=== PATIENT | female | born 1940 | race Hispanic/Latino ===

== ENCOUNTER 2019-07-29 21:27 | Observation (INO) | payer OTHER, SELFPAY ==
[~2019-07-29] VITALS: Ht 165.1 cm; Wt 65.5 kg
[2019-07-29 21:55] LABS: APPEARANCE,URINE Clear (CLEAR); BILIRUBIN,URINE Negative (NEGATIVE); COLOR,URINE Yellow (YELLOW); GLUCOSE, URINE (UA) Negative (NEGATIVE); KETONES,URINE Negative (NEGATIVE); LEUKOCYTE ESTERASE ,URINE Trace (NEGATIVE); NITRATE,URINE Negative (NEGATIVE); OCCULT BLOOD,URINE Negative (NEGATIVE); PH,URINE 8.5 (5.0-8.0); PROTEIN,URINE Negative (NEGATIVE); UROBILINOGEN,URINE 0.2 mg/dL (0.2-1.0)
[2019-07-29 22:02] LABS: BASOPHILS % (AUTO) 0.4 % (0.0-5.0); EOSINOPHILS % (AUTO) 0.6 % (0.0-8.0); HEMATOCRIT 41.9 % (36-48); LYMPHOCYTES % (AUTO) 14.5 % (21.0-51.0); MEAN CORPUSCULAR HEMOGLOBIN 29.1 pg (27.0-33.0); MEAN CORPUSCULAR HGB CONC 34.6 g/dL (32.0-36.0); MONOCYTES % (AUTO) 7.9 % (3.0-13.0); NEUTROPHILS % (AUTO) 76.2 % (40.0-77.0); PLATELET COUNT (AUTO) 291 K/uL (130-400); RED BLOOD CELL COUNT(AUTO) 4.99 MIL/uL (4.00-5.50); RED CELL DISTRIBUTION WIDTH 13.2 % (11.0-15.5); WHITE BLOOD COUNT (AUTO) 8.3 K/uL (4.8-10.8)
[2019-07-29 22:03] LABS: BACTERIA,URINE Few /HPF (None Seen); RBC,URINE None Seen /HPF (0-1); WBC,URINE 0-1 /HPF (0-1)
[2019-07-29 22:04] LABS: SQUAMOUS EPITHELIAL CELL,UR 0-2 /HPF (0-2)
[2019-07-29 22:12] LABS: POTASSIUM 3.8 mmol/L (3.5-5.1)
[2019-07-29 22:18] LABS: ALBUMIN 4.4 g/dL (3.5-5.0); BILIRUBIN,TOTAL 0.5 mg/dL (0.2-1.0)
[2019-07-29 23:09] LABS: INR 0.92 (0.85-1.15); PARTIAL THROMBOPLASTIN TIME 26.3 SEC (26.3-35.5)
[2019-07-29] MEDS ORDERED: ASPIRIN 325 MG TABLET ONE (23:24)
[2019-07-30] MEDS ORDERED: LACTULOSE 20 GM/30 ML UDCUP PO PRN (01:00)
[2019-07-30] MEDS ORDERED: NITROGLYCERIN 0.4 MG SL TAB SL PRN (01:00)
[2019-07-30] MEDS ORDERED: ONDANSETRON HCL 4 MG/2 ML VIAL IV PRN (01:00)
[2019-07-30] MEDS ORDERED: HYDRALAZINE HCL 20 MG/ML VIAL IV PRN (01:00)
[2019-07-30] MEDS ORDERED: ACETAMINOPHEN 325 MG TAB PO PRN ×2 (01:00)
[2019-07-30 04:24] LABS: HEMOGLOBIN A1C 6.5 % (4.0-6.0)
[2019-07-30 04:34] LABS: AMPHET/METH SCREEN,URINE NEGATIVE (NEGATIVE); BARBITURATE SCREEN, URINE NEGATIVE (NEGATIVE); BENZODIAZEPINES SCREEN,URINE NEGATIVE (NEGATIVE); CANNABINOID SCREEN,URINE NEGATIVE (NEGATIVE); COCAINE SCREEN,URINE NEGATIVE (NEGATIVE); OPIATE SCREEN,URINE POSITIVE (NEGATIVE); PHENCYCLIDINE SCREEN,URINE NEGATIVE (NEGATIVE)
[2019-07-30 05:23] VITALS: BP 150/76
[2019-07-30 06:53] LABS: BASOPHILS % (AUTO) 0.6 % (0.0-5.0); HEMATOCRIT 39.2 % (36-48); LYMPHOCYTES % (AUTO) 17.3 % (21.0-51.0); MEAN CORPUSCULAR HEMOGLOBIN 29.4 pg (27.0-33.0); MEAN CORPUSCULAR HGB CONC 34.4 g/dL (32.0-36.0); MEAN CORPUSCULAR VOLUME 85.4 fL (79-99); MONOCYTES % (AUTO) 10.2 % (3.0-13.0); NEUTROPHILS % (AUTO) 70.4 % (40.0-77.0); PLATELET COUNT (AUTO) 285 K/uL (130-400); RED BLOOD CELL COUNT(AUTO) 4.59 MIL/uL (4.00-5.50); RED CELL DISTRIBUTION WIDTH 13.4 % (11.0-15.5); WHITE BLOOD COUNT (AUTO) 6.2 K/uL (4.8-10.8)
[2019-07-30] MEDS ORDERED: HYDR-4153 PO (07:20)
[2019-07-30] MEDS ORDERED: AMLO5TAB9 PO (07:20)
[2019-07-30 07:23] LABS: CREATININE 0.7 mg/dL (0.5-1.5); MAGNESIUM 2.3 mg/dL (1.80-2.40); PHOSPHORUS 3.3 mg/dL (2.5-4.9); POTASSIUM 3.6 mmol/L (3.5-5.1); THYROID STIMULATING HORMONE 2.98 uIU/mL (0.36-3.74)
[2019-07-30 08:18] VITALS: BP 145/61
[2019-07-30] MEDS ORDERED: ASPIRIN 81 MG EC TAB PO SCH (09:00)
[2019-07-30] MEDS ORDERED: FAMOTIDINE 20MG TAB 20 MG TAB PO SCH (09:00)
[2019-07-30] MEDS ORDERED: ENOXAPARIN SODIUM 30 MG/0.3 ML SQ SCH (09:00)
[2019-07-30] MEDS ORDERED: METOPROLOL TARTRATE 25 MG TAB PO SCH (09:00)
[2019-07-30 11:57] VITALS: BP 137/68
[2019-07-30] MEDS ORDERED: SODIUM CHLORIDE 0.9% 100 ML IV SCH (13:30)
--- NOTE | 2019-07-30 14:26 | NUR ---
CM NOTE/IA MEET WITH PATIENT IN ROOM. PER PATIENT, LIVES WITH DAUGHTER, INDEPENDENT WITH ADLS, NO DME IN USE, NO HOME HEALTH OR PROVIDER SERVICES, AND FEELS SAFE TO RETURN HOME. SELF PACKET AND MEDICATION PACKET GIVEN TO PATIENT, VERBALIZED UNDERSTANDING OF PACKETS. Addendum: 07/31/19 at 1428 by JOSE ALFREDO MCGEE RN CM Amended: Links added.
[2019-07-30] MEDS ORDERED: AEC81 PO (16:27)
[2019-07-30] MEDS ORDERED: METO25 PO (16:27)
[2019-07-30] MEDS ORDERED: Nitroglycerin 0.4MG Sl Tab SL (16:27)
--- NOTE | 2019-07-30 18:18 | NUR ---
DISCHARGE DISCHARGE INSTRUCTIONS GIVEN, PATIENT VERBALIZED UNDERSTANDING. PRESCRIPTIONS GIVEN TO PATIENT. IV DISCONTINUED. TELEPAK DISCONTINUED.
== END 2019-07-30 18:39 | disposition home or self-care (01) ==
LOC: EDH 21:27 → EDHIP 21:28 → 4BH 07-30 05:20
PROVIDERS: ADMIT Internal Medicine; ATTEND Internal Medicine
DX: R53.1 Weakness (principal); R40.0 Somnolence; I48.91 Unspecified atrial fibrillation; I10 Essential (primary) hypertension; H54.61 Unqualified visual loss, right eye, normal vision left eye; Z90.49 Acquired absence of other specified parts of digestive tract; Z79.82 Long term (current) use of aspirin; Z79.899 Other long term (current) drug therapy; Z88.5 Allergy status to narcotic agent; Z88.6 Allergy status to analgesic agent; Z88.0 Allergy status to penicillin
CPT/HCPCS: 36415 ×2; 80048; 80053; 80061; 80305; 81001; 82550; 83036; 83735; 84100; 84443; 84484 ×3; 85025 ×2; 85610; 85730; 93005 ×4; 96372; 97039; 97161; 99284; G0378 ×18; G8978; G8979; G8980; G8981; G8982; G8983; J1650

== ENCOUNTER 2019-10-01 15:32 | Inpatient (IN) | payer MEDICAID, OTHER ==
[~2019-10-01] VITALS: Ht 157.5 cm; Wt 66.6 kg
[~2019-10-01 15:32] MED LIST: AEC81 PO; AMLO5TAB9 PO; HYDR-4153 PO; METO25 PO; Nitroglycerin 0.4MG Sl Tab SL
[2019-10-01 16:35] LABS: BASOPHILS % (AUTO) 0.6 % (0.0-5.0); EOSINOPHILS % (AUTO) 0.8 % (0.0-8.0); HEMATOCRIT 41.3 % (36-48); LYMPHOCYTES % (AUTO) 20.9 % (21.0-51.0); MEAN CORPUSCULAR HEMOGLOBIN 29.7 pg (27.0-33.0); MEAN CORPUSCULAR HGB CONC 35.1 g/dL (32.0-36.0); MEAN CORPUSCULAR VOLUME 84.5 fL (79-99); MONOCYTES % (AUTO) 9.6 % (3.0-13.0); NEUTROPHILS % (AUTO) 67.7 % (40.0-77.0); PLATELET COUNT (AUTO) 288 K/uL (130-400); RED BLOOD CELL COUNT(AUTO) 4.89 MIL/uL (4.00-5.50); RED CELL DISTRIBUTION WIDTH 12.6 % (11.0-15.5); WHITE BLOOD COUNT (AUTO) 5.2 K/uL (4.8-10.8)
[2019-10-01 16:38] LABS: CREATININE 0.7 mg/dL (0.5-1.5); POTASSIUM 3.1 mmol/L (3.5-5.1)
[2019-10-01 16:41] LABS: INR 0.92 (0.85-1.15); PARTIAL THROMBOPLASTIN TIME 26.7 SEC (26.3-35.5)
[2019-10-01 16:43] LABS: BILIRUBIN,TOTAL 0.5 mg/dL (0.2-1.0)
[2019-10-01] MEDS ORDERED: NITROGLYCERIN 0.4 MG SL TAB SL PRN (19:15)
[2019-10-01] MEDS: NITROGLYCERIN 1GM/1 INCH PACKET TD SCH (19:15)
[2019-10-01] MEDS ORDERED: LACTULOSE 20 GM/30 ML UDCUP PO PRN (19:15)
[2019-10-01] MEDS ORDERED: ONDANSETRON HCL 4 MG/2 ML VIAL IV PRN (19:15)
[2019-10-01] MEDS ORDERED: ENOXAPARIN SODIUM 40 MG/0.4 ML SYRINGE SQ SCH (19:58)
[2019-10-01] MEDS ORDERED: METOPROLOL TARTRATE 25 MG TAB PO SCH (21:00)
[2019-10-01] MEDS ORDERED: METOPROLOL TARTRATE 25 MG TAB ONE (21:11)
[2019-10-01] MEDS ORDERED: ACETAMINOPHEN 325 MG TAB ONE (21:11)
[2019-10-01] MEDS ORDERED: ENOXAPARIN SODIUM 40 MG/0.4 ML SYRINGE SQ ONE (21:11)
[2019-10-01] MEDS ORDERED: NITROGLYCERIN 1GM/1 INCH PACKET TD ONE (21:11)
[2019-10-02] MEDS ORDERED: NITROGLYCERIN 1GM/1 INCH PACKET TD ONE (04:16)
[2019-10-02] MEDS ORDERED: ACETAMINOPHEN 325 MG TAB ONE (04:19)
[2019-10-02 05:02] LABS: HEMATOCRIT 36.9 % (36-48); MEAN CORPUSCULAR HEMOGLOBIN 29.7 pg (27.0-33.0); MEAN CORPUSCULAR HGB CONC 35.2 g/dL (32.0-36.0); MEAN CORPUSCULAR VOLUME 84.4 fL (79-99); PLATELET COUNT (AUTO) 274 K/uL (130-400); RED BLOOD CELL COUNT(AUTO) 4.37 MIL/uL (4.00-5.50); RED CELL DISTRIBUTION WIDTH 12.6 % (11.0-15.5); WHITE BLOOD COUNT (AUTO) 4.6 K/uL (4.8-10.8)
[2019-10-02 05:12] LABS: BASOPHILS % (MANUAL) 2 % (0-2); LYMPHOCYTES % (MANUAL) 26 % (22-44); MAN.DIFF COMMENT-IMPRESSION MANUAL DIFFERENTIAL; MONOCYTES % (MANUAL) 8 % (2-9); PLATELET MORPHOLOGY COMMENT ADEQUATE; REACTIVE LYMPHOCYTES 6 % (0-0); SEGMENTED NEUTROPHILS % 58 % (40-70)
[2019-10-02 05:30] LABS: CREATININE 0.7 mg/dL (0.5-1.5); MAGNESIUM 2.2 mg/dL (1.80-2.40); POTASSIUM 3.4 mmol/L (3.5-5.1)
[2019-10-02] MEDS ORDERED: ACETAMINOPHEN ELIXIR 650 MG/20.3 ML UDCUP ONE (07:59)
[2019-10-02] MEDS ORDERED: ENOXAPARIN SODIUM 40 MG/0.4 ML SYRINGE SQ ONE (08:00)
[2019-10-02] MEDS ORDERED: ASPIRIN 325 MG TABLET ONE (08:00)
[2019-10-02] MEDS ORDERED: ENOXAPARIN SODIUM 40 MG/0.4 ML SYRINGE SQ SCH (09:00)
[2019-10-02] MEDS ORDERED: ASPIRIN 325 MG TABLET PO SCH (09:00)
[2019-10-02 10:35] VITALS: BP 128/58
--- NOTE | 2019-10-02 10:35 | NUR ---
TSF FROM ER RECEIVED REPORT FORM HERBIE CALLAHAN FROM ER, PT IN STRETCHER, VS STABLE , CARDIAC CONSULT (EDUIN) PT ON TELE
[2019-10-02] MEDS: NITROGLYCERIN 1GM/1 INCH PACKET TD SCH ×2 (12:29→21:12)
[2019-10-02] MEDS ORDERED: HYD (13:26)
[2019-10-02] MEDS ORDERED: ACET-66 PO (13:26)
[2019-10-02 16:58] VITALS: BP 153/71
[2019-10-02] MEDS ORDERED: ALPRAZOLAM 0.25 MG TABLET ONE (17:38)
[2019-10-02] MEDS ORDERED: ALPRAZOLAM 0.25 MG TABLET PO ONE (19:00)
[2019-10-02 19:20] VITALS: BP 142/71
[2019-10-02] MEDS: ENOXAPARIN SODIUM 60 MG/0.6 ML SQ SCH (21:13)
[2019-10-03] VITALS (7 sets, daily range): BP systolic 122–177; BP diastolic 54–80
[2019-10-03] MEDS: NITROGLYCERIN 1GM/1 INCH PACKET TD SCH ×3 (04:25→20:35)
[2019-10-03 07:55] LABS: BASOPHILS % (AUTO) 0.5 % (0.0-5.0); EOSINOPHILS % (AUTO) 0.7 % (0.0-8.0); LYMPHOCYTES % (AUTO) 22.1 % (21.0-51.0); MEAN CORPUSCULAR HEMOGLOBIN 29.6 pg (27.0-33.0); MEAN CORPUSCULAR HGB CONC 34.6 g/dL (32.0-36.0); MEAN CORPUSCULAR VOLUME 85.5 fL (79-99); MONOCYTES % (AUTO) 10.7 % (3.0-13.0); NEUTROPHILS % (AUTO) 65.8 % (40.0-77.0); PLATELET COUNT (AUTO) 273 K/uL (130-400); RED BLOOD CELL COUNT(AUTO) 4.56 MIL/uL (4.00-5.50); RED CELL DISTRIBUTION WIDTH 12.8 % (11.0-15.5); WHITE BLOOD COUNT (AUTO) 4.3 K/uL (4.8-10.8)
[2019-10-03 08:13] LABS: CREATININE 0.7 mg/dL (0.5-1.5); MAGNESIUM 2.2 mg/dL (1.80-2.40); PHOSPHORUS 3.3 mg/dL (2.5-4.9); POTASSIUM 3.7 mmol/L (3.5-5.1)
[2019-10-03] MEDS: ASPIRIN 81MG TAB.CHEW PO SCH (09:21)
[2019-10-03] MEDS: ENOXAPARIN SODIUM 60 MG/0.6 ML SQ SCH ×2 (09:21→20:48)
[2019-10-03] MEDS: ACETAMINOPHEN 325 MG TAB PO PRN ×2 (09:25→22:32)
--- NOTE | 2019-10-03 16:27 | NUR ---
PHILIPPE NOTE/IA UNABLE TO MEET WITH PATIENT, NEXT OF KIN CALLED, KAILA OSORIO. PER SON, PATIENT LIVES WITH SPOUSE AND DAUGHTER, AUGUSTIN OSORIO. ALSO, IS INDEPENDENT WITH ADLS, NO USE OF DME OR COMMUNITY SERVICES, HAS PRIMARY PHYSICIAN IN [place], AND FEELS SAFE FOR PATIENT TO RETURN HOME ONCE DISCHARGED FROM HOSPITAL. Addendum: 10/03/19 at 1628 by JOSE ALFREDO MCGEE RN CM Amended: Links added.
[2019-10-03] MEDS ORDERED: TRAMADOL HCL 50 MG TABLET PO ONE (16:30)
--- NOTE | 2019-10-03 21:08 | NUR ---
NOTE 2014 RECEIVED PHONE CALL FROM PATIENT'S PROVIDER AND SPOKE TO ME ABOUT SOME COMPLAINTS THAT PATIENT HAD. TOD HER THAT I WOULD SPEAK TO PATIENT. 2044 SPOKE WITH PATIENT ABOUT THE CALL RECEIVED FROM PROVIDER AND SHE SAID SHE DID ASKED HER TO MAKE IT AND AUTHORIZES HER TO RECEIVE INFORMATION IN HER CASE. DISCUSSED WITH HER WHAT HER NEEDS WERE AND WHAT IS UPSETTING HER. SHE SPOKE ABOUT BAD EXPERIENCES SHE HAD WITH STAFF. STATES THAT AT THIS TIME SHE JUST WOULD LIKE HER BLOOD PRESSURE ADDRESSED BECAUSE SHE DOES NOT FEEL WELL AND IT IS HIGH. ALSO IN THE CONVERSATION NOTICED THAT SHE IS ALSO FRUSTRATED WITH COMMUNICATION ISSUES SHE ONLY SPEAKS CITIZEN OF [place] AND NOT ALL STAFF SPEAK CITIZEN OF [place]. REASSURED HER FOR TONIGHT I WILL BE TAKING CARE OF HER AND WILL HELP WITH THOSE COMMUNICATION PROBLEMS. SPOKE WITH HER ABOUT HER PLAN: AWAITING THE RESULT OF COVID TEST FOR THE [employer] TO PROCEED WITH SCHEDULING A STRESS TEST (EXPLAINED WHAT IT IS). THEN AFTER THAT THE DOCTOR CAN DECIDE HOW TO PROCEED BASED ON RESULTS. SHE ACKNOWLEDGED UNDERSTANDING AND HAD ME SPEAK WITH HER DAUGHTER SYLVIE IN [place] VIA HER PHONE AND TELL HER ABOUT THIS UPDATES. TOLD HER THAT I WOULD CONTACT THE DOCTOR TO GET ORDERS TO HELP CONTROL BLOOD PRESSURE AT THIS TIME HER MEDICATIONS DO NOT LIST MEDICATION TO GIVE HER. SPENT ABOUT 30 MINUTES WITH PATIENT/DAUGHTER. 2057 CONTACTED ANSWERING SERVICE AND THEY CONTACTED DR CADENA OVER PHONE AND PASSED CALL ON TO ME (ONCALL FOR HOSPITALIST) GAVE BRIEF REPORT ON PATIENT AND BP OF 187/89 HR 71. DENIES ANY CHEST PAIN AT THIS TIME. NO PRN CURRENTLY FOR HER. IS RECEIVING NITRO PASTE. ORDERS RECEIVED FOR HYDRALAZINE 10 MG IV Q6HRS PRN. ENTERED ORDER IN COMPUTER. 2107 UPDATED PATIENT ON NEW ORDER AND THAT WILL BE GIVING IT TO HER ONCE VERIFIED BY PHARMACY. PATIENT ACKNOWLEDGED UNDERSTANDING. PATIENT SEEMS MORE CALM AND NOT ANXIOUS AND UPSET BEFORE.
[2019-10-03] MEDS: HYDRALAZINE HCL 20 MG/ML VIAL IV PRN (22:31)
[2019-10-03] MEDS: ZOLPIDEM TARTRATE 5 MG TAB PO PRN (23:40)
[2019-10-04] MEDS: NITROGLYCERIN 1GM/1 INCH PACKET TD SCH ×3 (03:33→20:26)
[2019-10-04 03:50] VITALS: BP 109/62
[2019-10-04 07:27] LABS: HEMATOCRIT 38.1 % (36-48); MEAN CORPUSCULAR HGB CONC 35.2 g/dL (32.0-36.0); MEAN CORPUSCULAR VOLUME 85.2 fL (79-99); PLATELET COUNT (AUTO) 288 K/uL (130-400); RED BLOOD CELL COUNT(AUTO) 4.47 MIL/uL (4.00-5.50); RED CELL DISTRIBUTION WIDTH 12.8 % (11.0-15.5); WHITE BLOOD COUNT (AUTO) 6.2 K/uL (4.8-10.8)
[2019-10-04 07:40] LABS: CREATININE 0.9 mg/dL (0.5-1.5); MAGNESIUM 2.1 mg/dL (1.80-2.40); PHOSPHORUS 3.5 mg/dL (2.5-4.9); POTASSIUM 3.8 mmol/L (3.5-5.1)
[2019-10-04 08:00] VITALS: BP 124/73
[2019-10-04 08:20] LABS: LYMPHOCYTES % (MANUAL) 4 % (22-44); MAN.DIFF COMMENT-IMPRESSION MANUAL DIFFERENTIAL; MONOCYTES % (MANUAL) 2 % (2-9); PLATELET MORPHOLOGY COMMENT ADEQUATE; REACTIVE LYMPHOCYTES 3 % (0-0); SEGMENTED NEUTROPHILS % 91 % (40-70)
[2019-10-04] MEDS: ENOXAPARIN SODIUM 60 MG/0.6 ML SQ SCH ×2 (10:00→20:27)
[2019-10-04] MEDS: ASPIRIN 81MG TAB.CHEW PO SCH (11:29)
[2019-10-04 12:00] VITALS: BP 128/83
[2019-10-04 16:00] VITALS: BP 148/81
--- NOTE | 2019-10-04 17:40 | NUR ---
TRANSFER REPORT RECEIVED FROM [facility]. PATIENT WITH CHEST PAIN, AND RATE CONTROLLED ARTERIAL FIBRILLATION. PATIENT TRANSFERRED VIA WHEELCHAIR BY NATE ROMERO. TELE IN PLACE RUNNING [employer] AT 78. PATIENT STABLE AT THIS TIME.
[2019-10-04 19:30] VITALS: BP 142/71
[2019-10-04 20:27] VITALS: BP 146/66
[2019-10-04] MEDS ORDERED: MAG HYDROX/AL HYDROX/SIMETH ES 30 ML SUSP UDCUP PO PRN (21:00)
[2019-10-04] MEDS: MAG HYDROX/AL HYDROX/SIMETH ES 30 ML SUSP UDCUP PO PRN (21:25)
[2019-10-04] MEDS: ACETAMINOPHEN 325 MG TAB PO PRN (21:27)
[2019-10-04] MEDS: ZOLPIDEM TARTRATE 5 MG TAB PO PRN (22:51)
[2019-10-05] VITALS (7 sets, daily range): BP systolic 109–197; BP diastolic 54–96
[2019-10-05] MEDS: NITROGLYCERIN 1GM/1 INCH PACKET TD SCH ×3 (02:59→20:52)
[2019-10-05] MEDS: ASPIRIN 81MG TAB.CHEW PO SCH (10:32)
[2019-10-05] MEDS: ENOXAPARIN SODIUM 60 MG/0.6 ML SQ SCH ×2 (10:33→20:55)
[2019-10-05] MEDS: MAG HYDROX/AL HYDROX/SIMETH ES 30 ML SUSP UDCUP PO PRN ×2 (11:36→22:04)
[2019-10-05] MEDS: HYDRALAZINE HCL 20 MG/ML VIAL IV PRN (15:09)
[2019-10-05] MEDS: ACETAMINOPHEN 325 MG TAB PO PRN (15:29)
--- NOTE | 2019-10-05 22:18 | NUR ---
NOTE CONTACTED HOSPITALIST ANSWERING SERVICE TO PAGE DR. NEWTON. UPON CALL BACK NOTIFIED HER THAT PATIENT IS REQUESTING MEDICATION FOR ANXIETY. INFORMED HER THAT PATIENT GOT A DOSE ON OCTOBER 01. SHE SAID SHE WILL PLACE AN ORDER FOR HER.
[2019-10-05] MEDS ORDERED: ALPRAZOLAM 0.25 MG TABLET PO ONE (22:30)
[2019-10-06] VITALS: BP 124/62
[2019-10-06] MEDS: NITROGLYCERIN 1GM/1 INCH PACKET TD SCH ×3 (03:49→20:05)
[2019-10-06 03:58] VITALS: BP 141/75
[2019-10-06 05:30] LABS: LYMPHOCYTES % (AUTO) 29.9 % (21.0-51.0); MEAN CORPUSCULAR HEMOGLOBIN 29.6 pg (27.0-33.0); MEAN CORPUSCULAR HGB CONC 34.7 g/dL (32.0-36.0); MEAN CORPUSCULAR VOLUME 85.2 fL (79-99); MONOCYTES % (AUTO) 11.2 % (3.0-13.0); NEUTROPHILS % (AUTO) 56.4 % (40.0-77.0); PLATELET COUNT (AUTO) 279 K/uL (130-400); RED BLOOD CELL COUNT(AUTO) 4.46 MIL/uL (4.00-5.50); RED CELL DISTRIBUTION WIDTH 12.8 % (11.0-15.5)
[2019-10-06 05:53] LABS: ALBUMIN 3.4 g/dL (3.5-5.0); BILIRUBIN,TOTAL 0.4 mg/dL (0.2-1.0); CREATININE 0.7 mg/dL (0.5-1.5); POTASSIUM 3.5 mmol/L (3.5-5.1); TOTAL PROTEIN, SERUM 6.8 g/dL (6.0-8.3)
[2019-10-06] MEDS ORDERED: REGADENOSON 0.4 MG/5 ML PF SYG IVP SCH (07:30)
[2019-10-06] MEDS: HYDRALAZINE HCL 20 MG/ML VIAL IV PRN (07:30)
[2019-10-06 08:00] VITALS: BP 164/93
[2019-10-06 12:00] VITALS: BP 127/75
[2019-10-06] MEDS: LISINOPRIL 10 MG TABLET PO SCH (12:00)
[2019-10-06] MEDS: ENOXAPARIN SODIUM 60 MG/0.6 ML SQ SCH ×2 (12:00→20:05)
[2019-10-06] MEDS: ASPIRIN 81MG TAB.CHEW PO SCH (12:00)
[2019-10-06 16:00] VITALS: BP 108/61
[2019-10-06] MEDS: ACETAMINOPHEN 325 MG TAB PO PRN (20:04)
[2019-10-06 20:32] VITALS: BP 124/73
[2019-10-06] MEDS: MAG HYDROX/AL HYDROX/SIMETH ES 30 ML SUSP UDCUP PO PRN (21:52)
--- NOTE | 2019-10-06 21:52 | NUR ---
MAALOX Medicated for c/o stomach upset.
--- NOTE | 2019-10-06 22:52 | NUR ---
MED EFFECT Pt sleeping quietly in bed,voiced no complaints.
[2019-10-07] VITALS: BP 131/68
[2019-10-07] MEDS: NITROGLYCERIN 1GM/1 INCH PACKET TD SCH (03:15)
[2019-10-07 03:36] VITALS: BP 105/53
[2019-10-07 04:36] LABS: BASOPHILS % (AUTO) 0.7 % (0.0-5.0); EOSINOPHILS % (AUTO) 1.5 % (0.0-8.0); HEMATOCRIT 37.1 % (36-48); LYMPHOCYTES % (AUTO) 33.3 % (21.0-51.0); MEAN CORPUSCULAR HEMOGLOBIN 29.7 pg (27.0-33.0); MEAN CORPUSCULAR HGB CONC 34.2 g/dL (32.0-36.0); MEAN CORPUSCULAR VOLUME 86.7 fL (79-99); MONOCYTES % (AUTO) 12.3 % (3.0-13.0); PLATELET COUNT (AUTO) 269 K/uL (130-400); RED BLOOD CELL COUNT(AUTO) 4.28 MIL/uL (4.00-5.50); RED CELL DISTRIBUTION WIDTH 12.9 % (11.0-15.5); WHITE BLOOD COUNT (AUTO) 4.1 K/uL (4.8-10.8)
[2019-10-07 05:05] LABS: ALBUMIN 3.3 g/dL (3.5-5.0); BILIRUBIN,TOTAL 0.4 mg/dL (0.2-1.0); CREATININE 0.8 mg/dL (0.5-1.5); POTASSIUM 3.7 mmol/L (3.5-5.1); TOTAL PROTEIN, SERUM 6.5 g/dL (6.0-8.3)
[2019-10-07 07:55] VITALS: BP 100/52
[2019-10-07] MEDS: ASPIRIN 81MG TAB.CHEW PO SCH (10:08)
[2019-10-07] MEDS: LISINOPRIL 10 MG TABLET PO SCH (10:08)
[2019-10-07 11:24] VITALS: BP 132/66
--- NOTE | 2019-10-07 14:00 | NUR ---
PATIENT ANXIOUS pt states is rx expensive ? states she may need to get it from [place] Marisol from case management brought a coupon for pt se will receive one months medication for 10.00 she was very grateful
== END 2019-10-07 16:00 | disposition home or self-care (01) | DRG 313 ==
LOC: EDH 15:32 → EDHIP 15:33 → 3AH 10-02 10:34 → 3CH 10-04 16:56
PROVIDERS: ADMIT Internal Medicine; ATTEND Internal Medicine
DX: R07.89 Other chest pain (principal); D68.59 Other primary thrombophilia; I50.32 Chronic diastolic (congestive) heart failure; I48.19 Other persistent atrial fibrillation; I49.5 Sick sinus syndrome; E11.9 Type 2 diabetes mellitus without complications; I11.0 Hypertensive heart disease with heart failure; E78.5 Hyperlipidemia, unspecified; M17.10 Unilateral primary osteoarthritis, unspecified knee; Z20.828 Contact with and (suspected) exposure to other viral communicable diseases; Z79.01 Long term (current) use of anticoagulants; Z90.49 Acquired absence of other specified parts of digestive tract; Z88.0 Allergy status to penicillin; Z88.5 Allergy status to narcotic agent; Z88.8 Allergy status to other drugs, medicaments and biological substances; Z83.3 Family history of diabetes mellitus; Z82.49 Family history of ischemic heart disease and other diseases of the circulatory system
CPT/HCPCS: 36415; 71045; 78452; 80048; 80053; 82550; 83735; 84100; 84484; 85025; 85610; 85730; 87426; 93005; 93017; 93306; 93356; 96374; A9500; G0378; J0360; J1650; J2785; U0003

== ENCOUNTER 2019-11-07 20:17 | Inpatient (IN) | payer MEDICAID, OTHER ==
[~2019-11-07] VITALS: Ht 152.4 cm; Wt 69.9 kg
[~2019-11-07 20:17] MED LIST changes: +ACET-66 PO
[2019-11-07 20:36] LABS: BASOPHILS % (AUTO) 0.3 % (0.0-5.0); EOSINOPHILS % (AUTO) 0.7 % (0.0-8.0); HEMATOCRIT 36.9 % (36-48); LYMPHOCYTES % (AUTO) 16.1 % (21.0-51.0); MEAN CORPUSCULAR HEMOGLOBIN 29.7 pg (27.0-33.0); MONOCYTES % (AUTO) 8.2 % (3.0-13.0); NEUTROPHILS % (AUTO) 74.4 % (40.0-77.0); PLATELET COUNT (AUTO) 229 K/uL (130-400); RED BLOOD CELL COUNT(AUTO) 4.34 MIL/uL (4.00-5.50); RED CELL DISTRIBUTION WIDTH 12.7 % (11.0-15.5)
[2019-11-07 20:47] LABS: CREATININE 0.8 mg/dL (0.5-1.5); POTASSIUM 3.7 mmol/L (3.5-5.1)
[2019-11-07 20:48] LABS: INR 0.91 (0.85-1.15); PARTIAL THROMBOPLASTIN TIME 26.8 SEC (26.3-35.5); PROTHROMBIN TIME 9.9 SEC (9.6-11.6)
[2019-11-07 20:51] LABS: ALBUMIN 3.7 g/dL (3.5-5.0); BILIRUBIN,TOTAL 0.2 mg/dL (0.2-1.0); TOTAL PROTEIN, SERUM 7.5 g/dL (6.0-8.3)
[2019-11-07] MEDS ORDERED: FAMOTIDINE/PF 20 MG/2 ML VIAL IV ONE (21:10)
[2019-11-07] MEDS ORDERED: HYOSCYAMINE SULFATE 0.125 MG TAB.SUBL SL ONE (21:10)
[2019-11-07] MEDS ORDERED: NITROGLYCERIN 1GM/1 INCH PACKET TD ONE (21:10)
[2019-11-07] MEDS ORDERED: ASPIRIN 325 MG TABLET ONE (22:44)
[2019-11-08] MEDS ORDERED: ACETAMINOPHEN 325 MG TAB PO PRN (00:30)
[2019-11-08] MEDS ORDERED: ONDANSETRON HCL 4 MG/2 ML VIAL IV PRN (00:30)
[2019-11-08] MEDS ORDERED: NITROGLYCERIN 0.4 MG SL TAB SL PRN (00:30)
[2019-11-08 03:20] VITALS: BP 145/87
--- NOTE | 2019-11-08 03:20 | NUR ---
admit note admit to [id number] via stretcher from er. patient awake, alert, ox3, no sob, no c/o pain at this time, teach patient plan of care and expected outcome, patient verbalizes understanding via teach back
[2019-11-08] MEDS ORDERED: APIX5TAB PO (03:31)
[2019-11-08] MEDS ORDERED: VALS80TA2 PO (03:31)
[2019-11-08] MEDS ORDERED: ALPR0.255 PO (03:31)
[2019-11-08 06:58] LABS: CREATININE 0.7 mg/dL (0.5-1.5); MAGNESIUM 2.2 mg/dL (1.80-2.40); THYROID STIMULATING HORMONE 3.24 uIU/mL (0.36-3.74)
[2019-11-08 07:45] VITALS: BP 146/70
[2019-11-08] MEDS: APIXABAN 5 MG TABLET PO SCH ×2 (08:30→19:59)
[2019-11-08] MEDS: FAMOTIDINE 20MG TAB 20 MG TAB PO SCH ×2 (08:30→19:59)
[2019-11-08 11:07] VITALS: BP 142/64
[2019-11-08] MEDS: ACETAMINOPHEN 325 MG TAB PO PRN ×2 (13:02→20:02)
[2019-11-08] MEDS: METOPROLOL SUCCINATE 50 MG TAB.SR.24H PO SCH (18:12)
--- NOTE | 2019-11-08 19:22 | NUR ---
INITIAL: Met w pt this afternoon to discuss dcp. Pt mentions that she lives w her spouse and a 23yr old child w down syndrome. Per pt prior to admission she was independent w ambulation and ADLs. she has a cane avail if needed. Pt mentions that she feels safe and comfortable to [place]. Discussed $4 medication discount program avail @ [facility] and [facility]. PHILIPPE to continue to follow and wait for Md recommendations. Addendum: 11/09/19 at 1927 by NATALY MONTANEZ CM Amended: Links added.
--- NOTE | 2019-11-08 20:00 | NUR ---
INTERROGATION PACEMAKER INTERROGATION DONE AT THE BEDSIDE,PER TECH NO EVENTS REGISTERED, TEACH PATIENT PLAN OF CARE AND EXPECTED OUTCOME , PATIENT VERBALIZES UNDERSTANDING VIA TEACH BACK
[2019-11-08 23:55] VITALS: BP 133/76
[2019-11-09 03:54] VITALS: BP 157/83
[2019-11-09] MEDS: ACETAMINOPHEN 325 MG TAB PO PRN (05:47)
[2019-11-09 06:01] LABS: BASOPHILS % (AUTO) 0.6 % (0.0-5.0); EOSINOPHILS % (AUTO) 1.1 % (0.0-8.0); HEMATOCRIT 41.6 % (36-48); MEAN CORPUSCULAR HEMOGLOBIN 29.9 pg (27.0-33.0); MEAN CORPUSCULAR HGB CONC 34.6 g/dL (32.0-36.0); MEAN CORPUSCULAR VOLUME 86.5 fL (79-99); MONOCYTES % (AUTO) 9.6 % (3.0-13.0); NEUTROPHILS % (AUTO) 66.5 % (40.0-77.0); PLATELET COUNT (AUTO) 251 K/uL (130-400); RED BLOOD CELL COUNT(AUTO) 4.81 MIL/uL (4.00-5.50); RED CELL DISTRIBUTION WIDTH 12.6 % (11.0-15.5); WHITE BLOOD COUNT (AUTO) 5.3 K/uL (4.8-10.8)
[2019-11-09 06:30] LABS: ALBUMIN 3.7 g/dL (3.5-5.0); BILIRUBIN,TOTAL 0.4 mg/dL (0.2-1.0); CREATININE 0.7 mg/dL (0.5-1.5); TOTAL PROTEIN, SERUM 7.5 g/dL (6.0-8.3)
[2019-11-09] MEDS: METOPROLOL SUCCINATE 50 MG TAB.SR.24H PO SCH (08:18)
[2019-11-09] MEDS: APIXABAN 5 MG TABLET PO SCH (08:18)
[2019-11-09 08:25] VITALS: BP 144/76
[2019-11-09] MEDS ORDERED: PANTOPRAZOLE SODIUM 40 MG TABLET.DR PO SCH (09:00)
[2019-11-09] MEDS ORDERED: METO-408 PO (09:54)
[2019-11-09 11:29] VITALS: BP 147/73
== END 2019-11-09 15:20 | disposition home or self-care (01) | DRG 310 ==
LOC: EDH 20:17 → EDHIP 20:18 → OBSVTOIN 20:18 → 3AH 11-08 02:01
PROVIDERS: ADMIT Internal Medicine; ATTEND Internal Medicine
PROC: 4B02XSZ Measurement of Cardiac Pacemaker, External Approach (ICD-10-PCS; principal; 2019-11-07)
PROC: B246ZZZ Ultrasonography of Right and Left Heart (ICD-10-PCS; 2019-11-07)
DX: I48.19 Other persistent atrial fibrillation (principal); M19.90 Unspecified osteoarthritis, unspecified site; I44.30 Unspecified atrioventricular block; I10 Essential (primary) hypertension; Z90.49 Acquired absence of other specified parts of digestive tract; Z88.0 Allergy status to penicillin; Z88.5 Allergy status to narcotic agent; Z95.0 Presence of cardiac pacemaker; Z79.01 Long term (current) use of anticoagulants
CPT/HCPCS: 36415; 71045; 80048; 80053; 80061; 82550; 83690; 83735; 83880; 84443; 84484; 85025; 85610; 85730; 93005; 93306; 93356; G0378; J3490

== ENCOUNTER 2020-05-10 18:33 | Inpatient (IN) | payer MEDICAID, OTHER ==
[~2020-05-10] VITALS: Ht 154.9 cm; Wt 69.9 kg
[~2020-05-10 18:33] MED LIST changes: -ACET-66 PO; -AEC81 PO; +ALPR0.255 PO; -AMLO5TAB9 PO; +APIX5TAB PO; -HYDR-4153 PO; +METO-408 PO; -METO25 PO; -Nitroglycerin 0.4MG Sl Tab SL; +VALS80TA2 PO
[2020-05-10 20:15] LABS: BASOPHILS % (AUTO) 0.1 % (0.0-5.0); HEMATOCRIT 36.8 % (36-48); LYMPHOCYTES % (AUTO) 4.6 % (21.0-51.0); MEAN CORPUSCULAR HEMOGLOBIN 28.4 pg (27.0-33.0); MEAN CORPUSCULAR VOLUME 83.6 fL (79-99); MONOCYTES % (AUTO) 1.2 % (3.0-13.0); NEUTROPHILS % (AUTO) 93.8 % (40.0-77.0); PLATELET COUNT (AUTO) 183 K/uL (130-400); RED CELL DISTRIBUTION WIDTH 13.9 % (11.0-15.5); WHITE BLOOD COUNT (AUTO) 10.1 K/uL (4.8-10.8)
[2020-05-10 20:27] LABS: APPEARANCE,URINE Clear (CLEAR); BILIRUBIN,URINE Negative (NEGATIVE); COLOR,URINE Yellow (YELLOW); GLUCOSE, URINE (UA) >=1000 mg/dL (NEGATIVE); KETONES,URINE Negative (NEGATIVE); LEUKOCYTE ESTERASE ,URINE Negative (NEGATIVE); NITRATE,URINE Negative (NEGATIVE); OCCULT BLOOD,URINE Negative (NEGATIVE); PROTEIN,URINE Negative (NEGATIVE)
[2020-05-10 20:33] LABS: WBC,URINE 0-1 /HPF (0-1)
[2020-05-10 20:34] LABS: BACTERIA,URINE Rare /HPF (None Seen)
[2020-05-10 20:35] LABS: SQUAMOUS EPITHELIAL CELL,UR Rare /HPF (0-2)
[2020-05-10 21:06] LABS: CRP QUANTITATIVE 36.8 mg/L (0.00-9.0)
[2020-05-10 21:22] LABS: CREATININE 0.9 mg/dL (0.5-1.5); POTASSIUM 3.7 mmol/L (3.5-5.1)
[2020-05-10 21:27] LABS: ALBUMIN 3.6 g/dL (3.5-5.0); BILIRUBIN,TOTAL 0.5 mg/dL (0.2-1.0); TOTAL PROTEIN, SERUM 7.6 g/dL (6.0-8.3)
[2020-05-10 21:28] LABS: ERYTHROCYTE SEDIMENTATION RATE 6 MM/HR (0-30)
[2020-05-10] MEDS ORDERED: ENOXAPARIN SODIUM 80 MG/0.8 ML SQ ONE (21:56)
[2020-05-10] MEDS ORDERED: ASPIRIN 325 MG TABLET ONE (21:56)
[2020-05-10] MEDS ORDERED: CLOPIDOGREL BISULFATE 75 MG TAB ONE (21:56)
[2020-05-10] MEDS ORDERED: HYDROCODONE/ACETAMINOPHEN 5/325 MG TAB ONE (21:59)
[2020-05-11] VITALS (7 sets, daily range): BP systolic 132–191; BP diastolic 56–75
[2020-05-11] MEDS ORDERED: ONDANSETRON HCL 4 MG/2 ML VIAL IV PRN (01:45)
[2020-05-11] MEDS ORDERED: ACETAMINOPHEN 325 MG TAB PO PRN (01:45)
[2020-05-11] MEDS ORDERED: HYDROCODONE/ACETAMINOPHEN 5/325 MG TAB ONE (02:55)
[2020-05-11] MEDS ORDERED: METO-408 PO (04:44)
[2020-05-11] MEDS ORDERED: AMLO5TAB5 PO (04:44)
[2020-05-11 05:46] LABS: BASOPHILS % (AUTO) 0.1 % (0.0-5.0); HEMATOCRIT 37.2 % (36-48); LYMPHOCYTES % (AUTO) 4.6 % (21.0-51.0); MEAN CORPUSCULAR HEMOGLOBIN 28.6 pg (27.0-33.0); MEAN CORPUSCULAR HGB CONC 35.2 g/dL (32.0-36.0); MEAN CORPUSCULAR VOLUME 81.2 fL (79-99); MONOCYTES % (AUTO) 0.9 % (3.0-13.0); PLATELET COUNT (AUTO) 249 K/uL (130-400); RED BLOOD CELL COUNT(AUTO) 4.58 MIL/uL (4.00-5.50); RED CELL DISTRIBUTION WIDTH 13.7 % (11.0-15.5); WHITE BLOOD COUNT (AUTO) 10.1 K/uL (4.8-10.8)
[2020-05-11 05:59] LABS: CREATININE 0.7 mg/dL (0.5-1.5); POTASSIUM 3.3 mmol/L (3.5-5.1)
[2020-05-11] MEDS: HYDRALAZINE HCL 20 MG/ML VIAL IV PRN (08:47)
[2020-05-11] MEDS ORDERED: METOPROLOL TARTRATE 25 MG TAB PO SCH (09:00)
[2020-05-11] MEDS ORDERED: ASPIRIN 81 MG EC TAB ONE (12:47)
[2020-05-11] MEDS: ACETAMINOPHEN 325 MG TAB PO PRN (12:54)
[2020-05-11] MEDS: CLOPIDOGREL BISULFATE 75 MG TAB PO SCH (12:55)
[2020-05-11] MEDS: FAMOTIDINE/PF 20 MG/2 ML VIAL IV SCH ×2 (12:56→21:00)
[2020-05-11] MEDS: ASPIRIN 325 MG TABLET PO SCH (12:57)
[2020-05-11] MEDS ORDERED: ENOXAPARIN SODIUM 80 MG/0.8 ML SQ SCH (16:15)
[2020-05-11] MEDS ORDERED: SODIUM CHLORIDE 0.9% 500ML 500 ML IV SCH (16:15)
[2020-05-11] MEDS: METOPROLOL SUCCINATE 50 MG TAB.SR.24H PO SCH (21:00)
[2020-05-12] VITALS (40 sets, daily range): BP systolic 80–192; BP diastolic 46–106
[2020-05-12 04:14] LABS: BASOPHILS % (AUTO) 0.3 % (0.0-5.0); EOSINOPHILS % (AUTO) 0.2 % (0.0-8.0); HEMATOCRIT 35.8 % (36-48); LYMPHOCYTES % (AUTO) 11.2 % (21.0-51.0); MEAN CORPUSCULAR HGB CONC 34.1 g/dL (32.0-36.0); MEAN CORPUSCULAR VOLUME 82.3 fL (79-99); MONOCYTES % (AUTO) 7.8 % (3.0-13.0); NEUTROPHILS % (AUTO) 80.2 % (40.0-77.0); PLATELET COUNT (AUTO) 237 K/uL (130-400); RED BLOOD CELL COUNT(AUTO) 4.35 MIL/uL (4.00-5.50); RED CELL DISTRIBUTION WIDTH 13.9 % (11.0-15.5); WHITE BLOOD COUNT (AUTO) 8.9 K/uL (4.8-10.8)
[2020-05-12 04:45] LABS: ALBUMIN 3.1 g/dL (3.5-5.0); BILIRUBIN,TOTAL 0.5 mg/dL (0.2-1.0); CREATININE 0.7 mg/dL (0.5-1.5); POTASSIUM 3.2 mmol/L (3.5-5.1); TOTAL PROTEIN, SERUM 6.5 g/dL (6.0-8.3)
[2020-05-12 07:48] LABS: INR 0.98 (0.85-1.15); PROTHROMBIN TIME 10.7 SEC (9.6-11.6)
[2020-05-12 07:49] LABS: PARTIAL THROMBOPLASTIN TIME 27.8 SEC (26.3-35.5)
[2020-05-12] MEDS: HYDRALAZINE HCL 20 MG/ML VIAL IV PRN (08:23)
[2020-05-12] MEDS: FAMOTIDINE/PF 20 MG/2 ML VIAL IV SCH ×2 (08:23→20:26)
[2020-05-12] MEDS ORDERED: APIXABAN 5 MG TABLET PO SCH (09:00)
[2020-05-12] MEDS: CLOPIDOGREL BISULFATE 75 MG TAB PO SCH (11:21)
[2020-05-12] MEDS: ASPIRIN 325 MG TABLET PO SCH (11:22)
[2020-05-12] MEDS ORDERED: POTASSIUM CHLORIDE 10% ELIXIR 20 MEQ/15 ML UDCUP PO PRN (11:30)
[2020-05-12] MEDS ORDERED: LIDOCAINE HCL-MPF 1% 2ML VIAL IJ PRN (11:30)
[2020-05-12] MEDS ORDERED: POTASSIUM CHLORIDE 20MEQ/100ML 100 ML IV PRN (11:30)
[2020-05-12] MEDS ORDERED: POTASSIUM CHLORIDE 20 MEQ ERTAB PO PRN (11:30)
[2020-05-12] MEDS ORDERED: POTASSIUM CHLORIDE 20 MEQ ERTAB PO ONE (11:59)
[2020-05-12] MEDS: METOPROLOL SUCCINATE 50 MG TAB.SR.24H PO SCH ×2 (12:05→20:26)
[2020-05-12] MEDS: AMLODIPINE BESYLATE 5 MG TAB PO SCH (12:05)
[2020-05-12] MEDS ORDERED: IODIXANOL 320 MG/ML 100 ML VIAL ONE (12:45)
[2020-05-12] MEDS ORDERED: NITROGLYCERIN 2 MG/VIAL VIAL IV ONE (12:45)
[2020-05-12] MEDS ORDERED: LIDOCAINE HCL 2% 20ML ONE (12:46)
[2020-05-12] MEDS ORDERED: FENTANYL CITRATE PF 50 MCG/1 ML 2ML VIAL ONE (12:46)
[2020-05-12] MEDS ORDERED: MIDAZOLAM HCL 1 MG/ML 2ML VIAL ONE (12:46)
[2020-05-12] MEDS ORDERED: HEPARIN SODIUM 1000UNIT/ML 10ML VIAL ONE (12:46)
[2020-05-12] MEDS ORDERED: ALTEPLASE IVCATH ONE (14:00)
[2020-05-12] MEDS ORDERED: SODIUM CHLORIDE 0.9% IVCATH ONE (14:00)
[2020-05-12] MEDS ORDERED: HEPARIN SODIUM IV SCH (14:45)
[2020-05-12] MEDS ORDERED: SODIUM CHLORIDE 0.9% IV SCH (14:45)
[2020-05-12] MEDS ORDERED: GLUCAGON 1MG KIT 1 MG ML IM PRN (14:45)
[2020-05-12] MEDS ORDERED: DEXTROSE 50%-WATER 50 ML DISP.SYRIN IV PRN (14:45)
[2020-05-12] MEDS ORDERED: METOPROLOL TARTRATE 1 MG/ML 5ML VIAL IV PRN (14:45)
[2020-05-12] MEDS: PHARMACY COMMUNICATION MISC SCH ×3 (14:45→22:45)
[2020-05-12] MEDS ORDERED: HYDRALAZINE HCL 20 MG/ML VIAL IV PRN (14:45)
[2020-05-12] MEDS ORDERED: FENTANYL CITRATE PF 50 MCG/1 ML 2ML VIAL IVP PRN (15:00)
[2020-05-12] MEDS ORDERED: MIDAZOLAM HCL 1 MG/ML 2ML VIAL IVP PRN (15:00)
[2020-05-12] MEDS: ACETAMINOPHEN-CODEINE 300/30MG TAB PO PRN ×2 (18:42→22:05)
[2020-05-12] MEDS ORDERED: COMPOUND IV REFRIGERATED 1 EACH IVSOLN MISC PRN (19:45)
[2020-05-13] VITALS (36 sets, daily range): BP systolic 109–197; BP diastolic 44–97
[2020-05-13] MEDS: ACETAMINOPHEN-CODEINE 300/30MG TAB PO PRN ×2 (02:21→20:18)
[2020-05-13] MEDS: PHARMACY COMMUNICATION MISC SCH ×2 (02:34→06:45)
[2020-05-13 03:31] LABS: BASOPHILS % (AUTO) 0.5 % (0.0-5.0); EOSINOPHILS % (AUTO) 0.3 % (0.0-8.0); HEMATOCRIT 43.1 % (36-48); LYMPHOCYTES % (AUTO) 11.6 % (21.0-51.0); MEAN CORPUSCULAR HEMOGLOBIN 28.3 pg (27.0-33.0); MEAN CORPUSCULAR HGB CONC 33.6 g/dL (32.0-36.0); MONOCYTES % (AUTO) 10.4 % (3.0-13.0); NEUTROPHILS % (AUTO) 76.8 % (40.0-77.0); PLATELET COUNT (AUTO) 249 K/uL (130-400); RED BLOOD CELL COUNT(AUTO) 5.13 MIL/uL (4.00-5.50); RED CELL DISTRIBUTION WIDTH 14.3 % (11.0-15.5); WHITE BLOOD COUNT (AUTO) 7.9 K/uL (4.8-10.8)
[2020-05-13 03:43] LABS: ALBUMIN 3.6 g/dL (3.5-5.0); BILIRUBIN,TOTAL 0.5 mg/dL (0.2-1.0); CREATININE 0.7 mg/dL (0.5-1.5); POTASSIUM 3.4 mmol/L (3.5-5.1); TOTAL PROTEIN, SERUM 7.4 g/dL (6.0-8.3)
[2020-05-13] MEDS ORDERED: ALTEPLASE IVCATH NR (07:00)
[2020-05-13] MEDS ORDERED: SODIUM CHLORIDE 0.9% IVCATH NR (07:00)
[2020-05-13] MEDS ORDERED: SODIUM CHLORIDE 0.9% IVCATH ONE (07:00)
[2020-05-13] MEDS ORDERED: ALTEPLASE IVCATH ONE (07:00)
[2020-05-13] MEDS ORDERED: IODIXANOL 320 MG/ML 100 ML VIAL ONE (07:09)
[2020-05-13] MEDS ORDERED: NITROGLYCERIN 2 MG/VIAL VIAL IV ONE (07:09)
[2020-05-13] MEDS ORDERED: FENTANYL CITRATE PF 50 MCG/1 ML 2ML VIAL ONE (07:10)
[2020-05-13] MEDS ORDERED: MIDAZOLAM HCL 1 MG/ML 2ML VIAL ONE (07:10)
[2020-05-13] MEDS ORDERED: LIDOCAINE HCL 2% 20ML ONE (07:10)
[2020-05-13] MEDS ORDERED: HEPARIN SODIUM 1000UNIT/ML 10ML VIAL ONE (07:11)
[2020-05-13] MEDS ORDERED: SODIUM CHLORIDE 0.9% 1000ML 1,000 ML IV SCH (08:30)
[2020-05-13] MEDS: METOPROLOL SUCCINATE 50 MG TAB.SR.24H PO SCH ×2 (10:37→20:18)
[2020-05-13] MEDS: AMLODIPINE BESYLATE 5 MG TAB PO SCH (10:37)
[2020-05-13] MEDS: CLOPIDOGREL BISULFATE 75 MG TAB PO SCH (10:38)
[2020-05-13] MEDS: ACETAMINOPHEN 325 MG TAB PO PRN (10:38)
[2020-05-13] MEDS ORDERED: ASPIRIN 81MG TAB.CHEW PO SCH (10:54)
[2020-05-13] MEDS: FAMOTIDINE 20MG TAB 20 MG TAB PO SCH (20:18)
[2020-05-14 00:23] VITALS: BP 124/61
[2020-05-14 04:51] VITALS: BP 170/101
[2020-05-14] MEDS ORDERED: ALPRAZOLAM 0.25 MG TABLET PO PRN (05:00)
[2020-05-14 05:43] LABS: BASOPHILS % (AUTO) 0.4 % (0.0-5.0); EOSINOPHILS % (AUTO) 0.3 % (0.0-8.0); HEMATOCRIT 40.6 % (36-48); LYMPHOCYTES % (AUTO) 14.6 % (21.0-51.0); MEAN CORPUSCULAR HEMOGLOBIN 28.2 pg (27.0-33.0); MONOCYTES % (AUTO) 9.8 % (3.0-13.0); NEUTROPHILS % (AUTO) 74.6 % (40.0-77.0); PLATELET COUNT (AUTO) 227 K/uL (130-400); RED BLOOD CELL COUNT(AUTO) 4.89 MIL/uL (4.00-5.50); RED CELL DISTRIBUTION WIDTH 14.2 % (11.0-15.5); WHITE BLOOD COUNT (AUTO) 7.4 K/uL (4.8-10.8)
[2020-05-14 06:03] LABS: ALBUMIN 3.2 g/dL (3.5-5.0); BILIRUBIN,TOTAL 0.7 mg/dL (0.2-1.0); CREATININE 0.7 mg/dL (0.5-1.5); POTASSIUM 3.4 mmol/L (3.5-5.1); TOTAL PROTEIN, SERUM 7.2 g/dL (6.0-8.3)
[2020-05-14 08:00] VITALS: BP 119/59
[2020-05-14] MEDS: AMLODIPINE BESYLATE 5 MG TAB PO SCH (08:26)
[2020-05-14] MEDS: FAMOTIDINE 20MG TAB 20 MG TAB PO SCH (08:26)
[2020-05-14] MEDS: METOPROLOL SUCCINATE 50 MG TAB.SR.24H PO SCH (08:28)
[2020-05-14] MEDS ORDERED: APIXABAN 5 MG TABLET PO SCH (09:00)
[2020-05-14] MEDS ORDERED: ASPIRIN 81MG TAB.CHEW PO SCH (09:00)
[2020-05-14] MEDS ORDERED: ASPI-1005 PO (10:46)
[2020-05-14 11:40] VITALS: BP 120/57
== END 2020-05-14 12:40 | disposition home or self-care (01) | DRG 300 ==
LOC: EDH 18:33 → EDHIP 18:34 → 4AH 05-11 03:50 → 2CH 05-12 15:36 → 4DH 05-13 09:19
PROVIDERS: ADMIT Internal Medicine; ATTEND Internal Medicine
PROC: 3E05317 Introduction of Other Thrombolytic into Peripheral Artery, Percutaneous Approach (ICD-10-PCS; 2020-05-12)
PROC: B41F1ZZ Fluoroscopy of Right Lower Extremity Arteries using Low Osmolar Contrast (ICD-10-PCS; principal; 2020-05-13)
DX: I70.229 Atherosclerosis of native arteries of extremities with rest pain, unspecified extremity (principal); I48.19 Other persistent atrial fibrillation; D68.59 Other primary thrombophilia; E87.1 Hypo-osmolality and hyponatremia; I10 Essential (primary) hypertension; E87.6 Hypokalemia; Z79.01 Long term (current) use of anticoagulants; Z91.14 Patient's other noncompliance with medication regimen; Z95.0 Presence of cardiac pacemaker; Z82.49 Family history of ischemic heart disease and other diseases of the circulatory system; Z82.3 Family history of stroke; Z90.49 Acquired absence of other specified parts of digestive tract; Z88.8 Allergy status to other drugs, medicaments and biological substances
CPT/HCPCS: 36247; 36415; 37211; 37214; 73090; 75630; 75710; 80048; 80053; 81001; 82550; 83605; 84145; 84484; 85025; 85610; 85651; 85730; 86140; 87040; 93005; 93306; 93356; 93925; 93970; 99156; 99157; C1757; C1760; C1769; C1893; C1894; G0378; J0360; J1644; J1650; J2250; J2997; J3010; J3490; J7040; Q9967

== ENCOUNTER 2020-06-05 21:46 | Emergency (ER) | payer MEDICAID, OTHER ==
[~2020-06-05 21:46] MED LIST changes: -ALPR0.255 PO; +AMLO5TAB5 PO; +ASPI-1005 PO; -VALS80TA2 PO
[2020-06-05 22:10] LABS: BASOPHILS % (AUTO) 0.5 % (0.0-5.0); HEMATOCRIT 35.1 % (36-48); LYMPHOCYTES % (AUTO) 18.5 % (21.0-51.0); MEAN CORPUSCULAR HGB CONC 34.8 g/dL (32.0-36.0); MEAN CORPUSCULAR VOLUME 83.4 fL (79-99); NEUTROPHILS % (AUTO) 69.4 % (40.0-77.0); PLATELET COUNT (AUTO) 237 K/uL (130-400); RED BLOOD CELL COUNT(AUTO) 4.21 MIL/uL (4.00-5.50); RED CELL DISTRIBUTION WIDTH 15.3 % (11.0-15.5); WHITE BLOOD COUNT (AUTO) 6.3 K/uL (4.8-10.8)
[2020-06-05 22:22] LABS: CREATININE 0.6 mg/dL (0.5-1.5); POTASSIUM 4.4 mmol/L (3.5-5.1)
[2020-06-05 22:26] LABS: PROTHROMBIN TIME 10.9 SEC (9.6-11.6)
[2020-06-05 22:27] LABS: PARTIAL THROMBOPLASTIN TIME 26.4 SEC (26.3-35.5)
[2020-06-05 22:29] LABS: ALBUMIN 3.5 g/dL (3.5-5.0); BILIRUBIN,TOTAL 0.5 mg/dL (0.2-1.0); TOTAL PROTEIN, SERUM 7.3 g/dL (6.0-8.3)
[2020-06-05 22:32] LABS: APPEARANCE,URINE Clear (CLEAR); BILIRUBIN,URINE Negative (NEGATIVE); COLOR,URINE Yellow (YELLOW); GLUCOSE, URINE (UA) Negative (NEGATIVE); KETONES,URINE Negative (NEGATIVE); LEUKOCYTE ESTERASE ,URINE Negative (NEGATIVE); NITRATE,URINE Negative (NEGATIVE); OCCULT BLOOD,URINE Negative (NEGATIVE); PH,URINE 7.5 (5.0-8.0); PROTEIN,URINE Negative (NEGATIVE); UROBILINOGEN,URINE 0.2 mg/dL (0.2-1.0)
[2020-06-05] MEDS ORDERED: ACETAMINOPHEN 500 MG TABLET ONE (23:56)
== END 2020-06-06 00:12 | disposition home or self-care (01) ==
LOC: EDH 21:46
DX: R10.30 Lower abdominal pain, unspecified (principal); I88.8 Other nonspecific lymphadenitis; M19.90 Unspecified osteoarthritis, unspecified site; I10 Essential (primary) hypertension; Z90.49 Acquired absence of other specified parts of digestive tract; Z88.5 Allergy status to narcotic agent; Z88.0 Allergy status to penicillin
CPT/HCPCS: 36415; 80053; 81003; 85025; 85610; 85730; 93971

== ENCOUNTER 2020-06-28 17:04 | Emergency (ER) | payer OTHER ==
[2020-06-28 19:00] LABS: APPEARANCE,URINE Cloudy (CLEAR); BILIRUBIN,URINE Negative (NEGATIVE); COLOR,URINE Yellow (YELLOW); GLUCOSE, URINE (UA) Negative (NEGATIVE); KETONES,URINE Negative (NEGATIVE); LEUKOCYTE ESTERASE ,URINE Large (NEGATIVE); NITRATE,URINE Negative (NEGATIVE); OCCULT BLOOD,URINE Large (NEGATIVE); PROTEIN,URINE POS 1+ mg/dL (NEGATIVE)
[2020-06-28 19:20] LABS: BACTERIA,URINE Few /HPF (None Seen); MUCUS,URINE Rare LPF (None Seen); SQUAMOUS EPITHELIAL CELL,UR Rare /HPF (0-2); WBC,URINE 26-50 /HPF (0-1)
[2020-06-28] MEDS ORDERED: CEPHALEXIN 500 MG CAPSULE ONE (19:38)
[2020-06-28] MEDS ORDERED: ACETAMINOPHEN 325 MG TAB ONE (19:38)
[2020-06-28] MEDS ORDERED: PHENAZOPYRIDINE HCL 200 MG TABLET ONE (19:39)
[2020-06-28] MEDS ORDERED: DICYCLOMINE HCL 20 MG TAB ONE (19:39)
== END 2020-06-28 19:56 | disposition home or self-care (01) ==
LOC: EDH 17:04
DX: S63.502A Unspecified sprain of left wrist, initial encounter (principal); S93.402A Sprain of unspecified ligament of left ankle, initial encounter; N39.0 Urinary tract infection, site not specified; W18.39XA Other fall on same level, initial encounter; Y93.89 Activity, other specified; Y92.89 Other specified places as the place of occurrence of the external cause; Y99.8 Other external cause status
CPT/HCPCS: 73110; 73610; 81001; 87077; 87088; 87186

== ENCOUNTER 2020-07-03 14:49 | Emergency (ER) | payer OTHER ==
[2020-07-03] MEDS ORDERED: DEXAMETHASONE SOD PHOSPHATE 10MG/ML 1ML VIAL ONE (15:06)
[2020-07-03] MEDS ORDERED: HYDROXYZINE HCL 25 MG TABLET ONE (15:07)
== END 2020-07-03 15:19 | disposition home or self-care (01) ==
LOC: EDH 14:49
DX: L30.9 Dermatitis, unspecified (principal); L03.114 Cellulitis of left upper limb; L03.113 Cellulitis of right upper limb; I10 Essential (primary) hypertension; M19.90 Unspecified osteoarthritis, unspecified site; Z88.0 Allergy status to penicillin; Z88.6 Allergy status to analgesic agent; Z88.8 Allergy status to other drugs, medicaments and biological substances; Z90.49 Acquired absence of other specified parts of digestive tract; Z95.0 Presence of cardiac pacemaker
CPT/HCPCS: 96372; 99283; J1100

== ENCOUNTER 2021-08-17 15:41 | Emergency (ER) | payer MEDICAID, OTHER ==
[~2021-08-17] VITALS: Ht 157.5 cm; Wt 69.9 kg
[2021-08-17 16:10] LABS: APPEARANCE,URINE Clear (CLEAR); BILIRUBIN,URINE Negative (NEGATIVE); COLOR,URINE Yellow (YELLOW); GLUCOSE, URINE (UA) Negative (NEGATIVE); KETONES,URINE Negative (NEGATIVE); LEUKOCYTE ESTERASE ,URINE Negative (NEGATIVE); NITRATE,URINE Negative (NEGATIVE); OCCULT BLOOD,URINE Negative (NEGATIVE); PH,URINE 6.5 (5.0-8.0); PROTEIN,URINE Negative (NEGATIVE); UROBILINOGEN,URINE 0.2 mg/dL (0.2-1.0)
[2021-08-17 16:41] LABS: BASOPHILS % (AUTO) 0.3 % (0.0-5.0); EOSINOPHILS % (AUTO) 0.9 % (0.0-8.0); LYMPHOCYTES % (AUTO) 15.4 % (21.0-51.0); MEAN CORPUSCULAR HEMOGLOBIN 29.8 pg (27.0-33.0); MEAN CORPUSCULAR VOLUME 87.7 fL (79-99); MONOCYTES % (AUTO) 9.2 % (3.0-13.0); PLATELET COUNT (AUTO) 199 K/uL (130-400); RED BLOOD CELL COUNT(AUTO) 3.99 MIL/uL (4.00-5.50); RED CELL DISTRIBUTION WIDTH 13.4 % (11.0-15.5); WHITE BLOOD COUNT (AUTO) 5.8 K/uL (4.8-10.8)
[2021-08-17 16:52] LABS: CREATININE 0.7 mg/dL (0.5-1.5); POTASSIUM 3.6 mmol/L (3.5-5.1)
[2021-08-17 16:53] LABS: INR 0.96 (0.85-1.15); PROTHROMBIN TIME 10.5 SEC (9.6-11.6)
[2021-08-17 17:03] LABS: ALBUMIN 3.4 g/dL (3.5-5.0); BILIRUBIN,TOTAL 0.4 mg/dL (0.2-1.0); MAGNESIUM 2.1 mg/dL (1.80-2.40); TOTAL PROTEIN, SERUM 7.1 g/dL (6.0-8.3)
[2021-08-17] MEDS ORDERED: HYDROCODONE/ACETAMINOPHEN 5/325 MG TAB PO ONE (18:00)
[2021-08-17 19:23] VITALS: BP 164/69
== END 2021-08-17 20:23 | disposition home or self-care (01) ==
LOC: EDH 15:41
DX: R07.89 Other chest pain (principal); R06.00 Dyspnea, unspecified; K21.9 Gastro-esophageal reflux disease without esophagitis; Z88.0 Allergy status to penicillin; Z88.5 Allergy status to narcotic agent; Z79.899 Other long term (current) drug therapy; Z79.82 Long term (current) use of aspirin; Z79.01 Long term (current) use of anticoagulants; Z88.7 Allergy status to serum and vaccine; Z95.810 Presence of automatic (implantable) cardiac defibrillator
CPT/HCPCS: 36415; 71045; 80053; 81003; 83735; 83874; 83880; 84484; 85025; 85610; 93005

== ENCOUNTER 2023-02-12 14:40 | Emergency (ER) | payer MEDICAID, OTHER ==
[~2023-02-12] VITALS: Ht 154.9 cm; Wt 54.4 kg
[~2023-02-12 14:40] MED LIST changes: +FURO40TA7 PO
[2023-02-12 16:06] LABS: BASOPHILS # (AUTO) 0.03 K/uL (0.00-0.20); BASOPHILS % (AUTO) 0.6 % (0.0-5.0); EOSINOPHILS # (AUTO) 0.06 K/uL (0.00-0.70); EOSINOPHILS % (AUTO) 1.2 % (0.0-8.0); HEMATOCRIT 39.5 % (36-48); IMMATURE GRANULOCYTE ABSOLUTE 0.01 K/uL (0-1); LYMPHOCYTES # (AUTO) 1.2 K/uL (1.0-4.8); LYMPHOCYTES % (AUTO) 23.9 % (21.0-51.0); MEAN CORPUSCULAR HEMOGLOBIN 29.7 pg (27.0-33.0); MEAN CORPUSCULAR HGB CONC 33.4 g/dL (32.0-36.0); MEAN CORPUSCULAR VOLUME 88.8 fL (79-99); MONOCYTES # (AUTO) 0.4 K/uL (0.1-1.0); MONOCYTES % (AUTO) 9.1 % (3.0-13.0); NEUTROPHILS # (AUTO) 3.2 K/uL (1.8-7.7); PLATELET COUNT (AUTO) 236 K/uL (130-400); RED BLOOD CELL COUNT(AUTO) 4.45 MIL/uL (4.00-5.50); RED CELL DISTRIBUTION WIDTH 13.3 % (11.0-15.5); WHITE BLOOD COUNT (AUTO) 4.9 K/uL (4.8-10.8)
[2023-02-12 16:19] LABS: APPEARANCE,URINE CLEAR (CLEAR); BILIRUBIN,URINE NEGATIVE (NEGATIVE); COLOR,URINE YELLOW (YELLOW); GLUCOSE, URINE (UA) NEGATIVE (NEGATIVE); KETONES,URINE NEGATIVE (NEGATIVE); LEUKOCYTE ESTERASE ,URINE NEGATIVE Leu/uL (NEGATIVE); NITRATE,URINE NEGATIVE (NEGATIVE); OCCULT BLOOD,URINE NEGATIVE (NEGATIVE); PROTEIN,URINE 10 mg/dL (NEGATIVE); UROBILINOGEN,URINE 0.2 mg/dL (0.2-1.0)
[2023-02-12 16:22] LABS: ADD UA MICROSCOPIC YES
[2023-02-12 16:26] LABS: CREATININE 0.8 mg/dL (0.5-1.5); POTASSIUM 3.7 mmol/L (3.5-5.1)
[2023-02-12 16:29] LABS: ALBUMIN 3.8 g/dL (3.5-5.0); BILIRUBIN,TOTAL 0.4 mg/dL (0.2-1.0); TOTAL PROTEIN, SERUM 8.2 g/dL (6.0-8.3)
[2023-02-12 16:50] LABS: BACTERIA,URINE RARE /HPF (None Seen); MUCUS,URINE RARE LPF (None Seen); SQUAMOUS EPITHELIAL CELL,UR FEW /HPF (0-2)
[2023-02-12] MEDS ORDERED: PHEN-847 PO (18:27)
[2023-02-12] MEDS ORDERED: NITR100C PO (18:27)
[2023-02-12 18:29] VITALS: BP 141/60; PULSE 62; RESP 18; O2SAT 98
[2023-02-12] MEDS ORDERED: KETOROLAC 30MG VIAL (30MG/ML) IVP ONE (19:00)
== END 2023-02-12 18:34 | disposition home or self-care (01) ==
LOC: EDH 14:40
DX: R30.0 Dysuria (principal); R10.30 Lower abdominal pain, unspecified; Z79.899 Other long term (current) drug therapy; I10 Essential (primary) hypertension; E78.00 Pure hypercholesterolemia, unspecified; Z88.0 Allergy status to penicillin; Z88.5 Allergy status to narcotic agent; Z88.7 Allergy status to serum and vaccine; Z88.8 Allergy status to other drugs, medicaments and biological substances
CPT/HCPCS: 99284; 96374; 82150; 84484; 80053; 83690; 85025; 81001; 36415; J1885

== ENCOUNTER 2023-03-21 18:18 | Emergency (ER) | payer BC, OTHER ==
[~2023-03-21] VITALS: Ht 154.9 cm; Wt 63.0 kg
[~2023-03-21 18:18] MED LIST changes: +NITR100C PO; +PHEN-847 PO
[2023-03-21] MEDS ORDERED: 0.9%NACL 1000ML 1,000 ML IV ONE (20:00)
[2023-03-21] MEDS ORDERED: ACETAMINOPHEN 325 MG TAB PO ONE (20:00)
[2023-03-21 20:19] LABS: BASOPHILS # (AUTO) 0.02 K/uL (0.00-0.20); BASOPHILS % (AUTO) 0.3 % (0.0-5.0); EOSINOPHILS # (AUTO) 0.07 K/uL (0.00-0.70); EOSINOPHILS % (AUTO) 1.1 % (0.0-8.0); HEMATOCRIT 36.5 % (36-48); IMMATURE GRANULOCYTE ABSOLUTE 0.08 K/uL (0-1); LYMPHOCYTES # (AUTO) 1.6 K/uL (1.0-4.8); LYMPHOCYTES % (AUTO) 26.8 % (21.0-51.0); MEAN CORPUSCULAR HEMOGLOBIN 29.5 pg (27.0-33.0); MEAN CORPUSCULAR HGB CONC 34.8 g/dL (32.0-36.0); MEAN CORPUSCULAR VOLUME 84.9 fL (79-99); MONOCYTES # (AUTO) 0.7 K/uL (0.1-1.0); MONOCYTES % (AUTO) 11.8 % (3.0-13.0); NEUTROPHILS # (AUTO) 3.6 K/uL (1.8-7.7); NEUTROPHILS % (AUTO) 58.7 % (40.0-77.0); PLATELET COUNT (AUTO) 265 K/uL (130-400); RED CELL DISTRIBUTION WIDTH 12.9 % (11.0-15.5); WHITE BLOOD COUNT (AUTO) 6.1 K/uL (4.8-10.8)
[2023-03-21 20:36] LABS: INFLUENZA TYPE A Negative For Type A (NEGATIVE); INFLUENZA TYPE B Negative For Type B (NEGATIVE)
[2023-03-21 20:37] LABS: CREATININE 0.6 mg/dL (0.5-1.5); POTASSIUM 3.5 mmol/L (3.5-5.1)
[2023-03-21 20:43] LABS: SARS-CoV-2, RNA, NAAT POSITIVE SARS CoV-2 (NEGATIVE)
[2023-03-21 20:43] LABS: ALBUMIN 3.5 g/dL (3.5-5.0); BILIRUBIN,TOTAL 0.6 mg/dL (0.2-1.0); TOTAL PROTEIN, SERUM 7.1 g/dL (6.0-8.3)
[2023-03-21 20:59] LABS: B-TYPE NATRIURETIC PEPTIDE 128 pg/mL (0-100)
[2023-03-21] MEDS ORDERED: METO25 PO (21:41)
[2023-03-21] MEDS ORDERED: PANT40TA54 PO (21:41)
[2023-03-21] MEDS ORDERED: LISI10TA24 PO (21:41)
[2023-03-21] MEDS ORDERED: ACET-2247 PO (21:42)
[2023-03-21 21:45] LABS: APPEARANCE,URINE CLEAR (CLEAR); BILIRUBIN,URINE NEGATIVE (NEGATIVE); COLOR,URINE LIGHT-YELLOW (YELLOW); GLUCOSE, URINE (UA) NEGATIVE (NEGATIVE); KETONES,URINE NEGATIVE (NEGATIVE); LEUKOCYTE ESTERASE ,URINE NEGATIVE Leu/uL (NEGATIVE); NITRATE,URINE NEGATIVE (NEGATIVE); OCCULT BLOOD,URINE NEGATIVE (NEGATIVE); PROTEIN,URINE NEGATIVE (NEGATIVE); UROBILINOGEN,URINE 0.2 mg/dL (0.2-1.0)
[2023-03-21 21:48] LABS: ADD UA MICROSCOPIC YES
[2023-03-21 21:51] LABS: RBC,URINE 0-1 /HPF (0-1); SQUAMOUS EPITHELIAL CELL,UR FEW /HPF (0-2); WBC,URINE 0-1 /HPF (0-1)
[2023-03-21 22:54] VITALS: BP 139/78; PULSE 79; RESP 16; O2SAT 100
== END 2023-03-21 22:55 | disposition home or self-care (01) ==
LOC: EDH 18:18
DX: U07.1 COVID-19 (principal); I10 Essential (primary) hypertension; Z79.01 Long term (current) use of anticoagulants; Z79.82 Long term (current) use of aspirin; Z79.899 Other long term (current) drug therapy; Z88.0 Allergy status to penicillin; Z88.5 Allergy status to narcotic agent; Z88.7 Allergy status to serum and vaccine; Z90.49 Acquired absence of other specified parts of digestive tract; Z95.810 Presence of automatic (implantable) cardiac defibrillator
CPT/HCPCS: 99284; 96360; 87635; 84484; 80053; 83880; 85025; 87880; 87804 ×2; 81001; 36415; 93005; J7030

== ENCOUNTER 2024-12-04 19:46 | Emergency (ER) | payer SELFPAY ==
[~2024-12-04] VITALS: Ht 165.1 cm; Wt 63.5 kg
[~2024-12-04 19:46] MED LIST changes: +ACET-2247 PO; +AMLO5TAB4 PO; -AMLO5TAB5 PO; +AMLO5TAB6 PO; +ATOR40TA69 PO; +DICL100G60 TP; -FURO40TA7 PO; +HYDR25 PO; +LEVO250T75 PO; +LOSA-420 PO; -METO-408 PO; +METO25 PO; -NITR100C PO; +PANT40TA54 PO; -PHEN-847 PO; +TRAM1TAB2 PO
--- NOTE | 2024-12-04 19:55 | NUR ---
UA CUP PROVIDED
--- NOTE | 2024-12-04 20:09 | ERN ---
ED Note History of Present Illness Stated Complaint: ABD PAIN Chief Complaint: Abdominal Pain Time Seen by MD: 19:54 Dictation: PATIENT IS A 84-YEAR-OLD FEMALE COMING IN WITH HER DAUGHTER WITH COMPLAINTS OF LOWER PELVIC AND SUPRAPUBIC PAIN SHE HAS HAD FOR THREE WEEKS. NO FEVER NO CHILLS NO NAUSEA VOMITING SHE STATES SHE HAS BEEN CURRENTLY TREATED FOR A URINARY TRACT INFECTIONS WITH MEDICATIONS FROM HER DOCTOR IN [place] SHE DOES NOT HAVE ANY BODY IN [place]. SHE IS AFEBRILE CURRENTLY. Allergies: Coded Allergies: morphine (Unverified Allergy, Severe, ANAPHYLAXIS, 06/13/13) Influenza Virus Vaccines (Unverified Allergy, Intermediate, 05/11/20) shakiness, headache, fever Penicillins (Unverified Allergy, Unknown, 07/30/19) diclofenac (Verified Allergy, Unknown, 05/11/20) fluconazole (Unverified Allergy, Unknown, 03/03/24) Uncoded Allergies: DICOFENACO (Allergy, Severe, ANAPHYLAXIS, 06/13/13) Home Meds Active Scripts Diclofenac Sodium (Diclofenac Sodium) 1 % Gel..gram., 4 GM TP QIDP PRN for PAIN, #100 G Prov:ALEJANDRA JANE 07/20/23 Acetaminophen (Tylenol) 325 Mg Tablet, 325 MG PO QIDP PRN for PAIN, #20 TAB Prov:ALEJANDRA JANE 07/20/23 Losartan Potassium (Cozaar) 100 Mg Tablet, 100 MG PO DAILY, #30 TAB 0 Refills Prov:FABIENNE HEALY MD 05/23/23 Atorvastatin Calcium (LIPITOR) 40 Mg Tablet, 40 MG PO HS, #30 TAB 0 Refills Prov:FABIENNE HEALY MD 05/23/23 Acetaminophen (Tylenol) 325 Mg Tablet, 650 MG PO Q4HPRN PRN for FEVER, #40 TAB Prov:SANDRA CAR MD 03/21/23 Tramadol HCl/Acetaminophen (Ultracet Tablet) 1 Each Tablet, 1 EACH PO TIDP, #40 TAB Prov:RIGOBERTO UPTON 11/01/21 Aspirin (ASPIRIN 81MG CHEW TAB) 81 Mg Tab.chew, 81 MG PO DAILY for 30 Days, #30 TAB.CHEW Prov:GHANSHYAM ARTEAGA 05/14/20 Levofloxacin (Levofloxacin) 250 Mg Tablet, 250 MG PO DAILY for 3 Days, #3 TAB Prov:MERY AQUINO MD 02/08/19 Hydralazine HCl (Apresoline) 25 Mg Tab, 25 MG PO BID for 30 Days, #60 TAB Prov:MERY AQUINO MD 02/08/19 Amlodipine Besylate (Norvasc 5Mg Tab) 5 Mg Tablet, 5 MG PO DAILY for 30 Days, #30 TAB Prov:MERY AQUINO MD 02/08/19 Reported Medications Pantoprazole Sodium (Pantoprazole Sodium) 40 Mg Tablet.dr, 1 TAB PO DAILY 03/21/23 Metoprolol Tartrate (Lopressor) 25 Mg Tab, 1 TAB PO BID 03/21/23 Amlodipine Besylate (Norvasc) 5 Mg Tablet, 5 MG PO DAILY, TAB 05/11/20 Apixaban (Eliquis) 5 Mg Tablet, 5 MG PO DAILY, TAB 11/08/19 Past Medical History Past Medical History: Hypertension Surgical History: Cholecystectomy, Pacer/AICD Family History: Negative Social History: Negative History: Not Applicable RN Note Reviewed/Agreed w/PFSH: Yes Review of System Dictation CONSTITUTIONAL: NEGATIVE EXCEPT FOR HPI HEAD/FACE: NEGATIVE EXCEPT FOR HPI EENT: NEGATIVE EXCEPT FOR HPI RESPIRATORY: NEGATIVE EXCEPT FOR HPI GASTROINTESTINAL/ABDOMINAL: NEGATIVE EXCEPT FOR HPI SUPRAPUBIC AND PELVIC PAIN THREE WEEKS GENITOURINARY: NEGATIVE EXCEPT FOR HPI MUSCULOSKELETAL: NEGATIVE EXCEPT FOR HPI INTEGUMENTARY: NEGATIVE EXCEPT FOR HPI NEUROLOGICAL/PSYCH: NEGATIVE EXCEPT FOR HPI HEMATOLOGIC/LYMPHATIC: NEGATIVE EXCEPT FOR HPI ALL SYSTEMS NEGATIVE, EXCEPT NOTED ABOVE. 13 POINT REVIEW OF SYSTEMS ASSESSED AND ALL NEGATIVE EXCEPT FOR ABOVE. Initial Vital Sign VS Vital Signs Date Time Temp Pulse Resp B/P (MAP) Pulse Ox O2 Delivery O2 Flow Rate FiO2 12/04/24 19:52 97.3 60 16 148/43 98 Room Air 12/04/24 20:53 0 21 Physical Exam Dictation VITAL SIGNS REVIEWED GENERAL APPEARANCE: ALERT, ORIENTED X 3, MILD ACUTE DISTRESS, WELL DEVELOPED, NOURISHED. HEAD AND FACE: NON-TRAUMATIC. EYES: PERRL, PINK CONJUNCTIVAS, EYELID NO TRAUMA, ANTERIOR CHAMBER WITH ARCUS SENILIS. EARS: PINNAS INTACT AND NO SIGNS OF TRAUMA OR ERYTHEMA EAR CANALS CLEAR AND NO DISCHARGE TM NO ERYTHEMA NOSE: NO DISCHARGE, NO BLEEDING. OROPHARYNX: MOUTH NORMAL, TONGUE PINK, PHARYNX CLEAR,NO ERYTHEMA, TONSILS NO EXUDATES, NO ABSCESSES NOTED, MUCOUS MEMBRANE MOIST NECK: SUPPLE, NON-TENDER, NO THYROMEGALY, NO MASSES, NO JVD, NO BRUITS BREAST:DEFERRED CHEST:NO TENDERNESS, NO CREPITUS, NO PARADOXICAL MOVEMENT, NO RETRACTIONS LUNGS:CLEAR, WELL-VENTILATED, SYMMETRIC, NO RALES, NO WHEEZING, NO RHONCHI, NO STRIDOR, GOOD BREATH SOUNDS BILATERALLY HEART: REGULAR RATE, REGULAR RHYTHM, NO MURMUR, NO GALLOPS VASCULAR: NO PERIPHERAL EDEMA, ABDOMEN: SOFT, POSITIVE BOWEL SOUNDS, NONDISTENDED, NO GUARDING, NONTENDER, NO REBOUND, NO MASSES NO HEPATOMEGALY, NO SPLENOMEGALY, NO BABB'S SIGN, NO HERNIAS. NEGATIVE CVAT BILATERALLY RECTAL: DEFERRED GENITAL: DEFERRED MILD SUPRAPUBIC TENDERNESS WITH PALPATION NEUROLOGICAL: NORMAL SPEECH, MOTOR FUNCTION INTACT, SENSORY FUNCTION INTACT MUSCULOSKELETAL: NECK NONTENDER, FULL RANGE OF MOTION, BACK NONTENDER, FULL RANGE OF MOTION, EXTREMITIES: NONTENDER, FULL RANGE OF MOTION SKIN: COLOR PINK, DRY, NO TURGOR, NO RASH, NO LACERATIONS, NO ABRASIONS, NO CONTUSIONS. LYMPHATIC: DEFERRED Results (Laboratory/Radiology) Laboratory/Radiology Laboratory Tests Test 12/04/24 20:16 12/04/24 20:23 White Blood Count 5.0 K/uL (4.8-10.8) Red Blood Count 3.62 MIL/uL (4.00-5.50) L Hemoglobin 10.9 g/dL (12.0-16.0) L Hematocrit 32.1 % (36-48) L Mean Corpuscular Volume 88.7 fL (79-99) Mean Corpuscular Hemoglobin 30.1 pg (27.0-33.0) Mean Corpuscular Hemoglobin Concent 34.0 g/dL (32.0-36.0) Red Cell Distribution Width 13.5 % (11.0-15.5) Platelet Count 287 K/uL (130-400) Mean Platelet Volume 9.4 fL (7.5-10.5) Immature Granulocyte % (Auto) 0.4 % (0-1) Neutrophils (%) (Auto) 68.5 % (40.0-77.0) Lymphocytes (%) (Auto) 18.8 % (21.0-51.0) L Monocytes (%) (Auto) 11.9 % (3.0-13.0) Eosinophils (%) (Auto) 0.0 % (0.0-8.0) Basophils (%) (Auto) 0.4 % (0.0-5.0) Neutrophils # (Auto) 3.5 K/uL (1.8-7.7) Lymphocytes # (Auto) 1.0 K/uL (1.0-4.8) Monocytes # (Auto) 0.6 K/uL (0.1-1.0) Eosinophils # (Auto) 0.00 K/uL (0.00-0.70) Basophils # (Auto) 0.02 K/uL (0.00-0.20) Absolute Immature Granulocyte (auto 0.02 K/uL (0-1) Nucleated Red Blood Cells 0.0 % (0.0-0.19) Sodium Level 138 mmol/L (136-145) Potassium Level 4.5 mmol/L (3.5-5.1) Chloride Level 101 mmol/L (101-111) Carbon Dioxide Level 29 mmol/L (21-32) Blood Urea Nitrogen 30 mg/dL (7-18) H Creatinine 0.9 mg/dL (0.5-1.0) Glomerular Filtration Rate Calc 64 mL/min (>90) Random Glucose 112 mg/dL (70-105) H Total Calcium 9.0 mg/dL (8.5-10.1) Lipase 24 U/L (16-77) Urine Color DARK-YELLOW (YELLOW) Urine Appearance CLOUDY (CLEAR) H Urine pH 5.5 (5.0-8.0) Urine Specific Sharples 1.026 (1.001-1.031) Urine Protein NEGATIVE mg/dL (NEGATIVE) Urine Glucose (UA) NEGATIVE mg/dL (NEGATIVE) Urine Ketones NEGATIVE mg/dL (NEGATIVE) Urine Occult Blood MODERATE (NEGATIVE) H Urine Nitrate 1+ (NEGATIVE) H Urine Bilirubin 0.5 mg/dL (NEGATIVE) H Urine Urobilinogen 2.0 mg/dL (0.2-1.0) H Urine Leukocyte Esterase NEGATIVE Misael/uL Urine RBC 6-10 /HPF (0-1) H Urine WBC 2-5 /HPF (0-1) H Urine Squamous Epithelial Cells FEW /HPF (0-2) Urine Bacteria RARE /HPF (None Seen) Urine Hyaline Casts 2-5 /LPF (0-1 /LPF) H Urine Other Casts 1 /LPF (None Seen) REASON: DIFFUSE PELVIC AND SUPRAPUBIC PAIN LARGE HEMATURIA ORDERING PHYSICIAN: VINH MATTHEWS NP PROCEDURE: ABD PEL WO - CT ABDOMEN/PELVIS W/O CONTRAST EXAM: CT Abdomen and Pelvis Without IV contrast. CLINICAL HISTORY: Diffuse pelvic and suprapubic pain. Hematuria. TECHNIQUE: Axial computed tomography images of the abdomen and pelvis without intravenous contrast. CONTRAST: No IV contrast. COMPARISON: CT dated May 20, 2023. FINDINGS: LUNG BASES: Mild bibasilar atelectasis. The rest of the lung bases appear clear. No pleural effusions are seen. Mild cardiomegaly. Mild pericardial effusion. Coronary artery calcifications. Cardiac pacemaker lead tip in the right ventricle. LIVER: A few small calcified granulomas are scattered in the liver. GALLBLADDER AND BILE DUCTS: The gallbladder is surgically absent. No biliary ductal dilatation is evident. PANCREAS: Unremarkable. SPLEEN: Unremarkable. ADRENAL GLANDS: 3.5 x 2.5 cm hypodense lesion in the right adrenal gland with a small hyperdense component. KIDNEYS, URETERS, AND BLADDER: The kidneys appear within normal limits. There is no hydronephrosis or hydroureter. No urinary calculi are seen. The urinary bladder is partially distended with questionable wall thickening. STOMACH AND BOWEL: Colonic diverticulosis without diverticulitis. Unremarkable appearance of the stomach and the rest of the bowel. No evidence of bowel obstruction. No evidence suggesting enteritis or colitis. A moderate amount of fecal matter in the large bowel may represent a component of constipation. A small and uncomplicated umbilical hernia with fat as content, defect size measuring up to 2.5 cm. APPENDIX: No evidence of acute appendicitis on CT examination. PERITONEUM: No free fluid. No free air. LYMPH NODES: No lymphadenopathy is evident. REPRODUCTIVE: Unremarkable as visualized. VASCULATURE: Atherosclerotic wall calcifications in the abdominal aorta. No evidence of abdominal aortic aneurysm. BONES: Moderate multilevel degenerative changes in the spine. No aggressively appearing osseous lesion. No acute osseous pathology evident. IMPRESSION: No acute abnormality in the abdomen or pelvis. Stable right adrenal nodular lesion, may represent an adenoma. Colonic diverticulosis without diverticulitis. No significant interval change /[facility] Labs Reviewed?: Yes ED Course ED Course Orders Procedure Category Date Status Time Cbc With Differential LAB 12/04/24 Complete 20:06 Urinalysis Profile LAB 12/04/24 Complete 20:06 Lipase LAB 12/04/24 Complete 20:06 Basic Metabolic Panel LAB 12/04/24 Complete 20:06 0.9%Nacl 1000ml (Ns PHA 12/04/24 In Process 1000ml) 20:30 Culture Urine TALIA 12/04/24 In Process 20:41 Ct Abdomen/Pelvis W/O CT 12/04/24 Resulted Contrast 20:47 Current Medications Medications (Trade) Dose Ordered Sig/Martha Route PRN Reason Start Time Stop Time Status Last Admin Dose Admin Sodium Chloride 1,000 ml @ 0 mls/hr ONCE IV 12/04/24 20:30 12/05/24 20:29 12/04/24 20:53 Vital Signs Date Time Temp Pulse Resp B/P (MAP) Pulse Ox O2 Delivery O2 Flow Rate FiO2 12/04/24 20:53 98.4 60 17 156/48 99 Room Air* 0 21 12/04/24 19:52 97.3 60 16 148/43 98 Room Air Medical Decision Making MDM The patient is an 84-year-old female with a history of hypertension, PVD who presents to the emergency department with complaints of suprapubic abdominal pain and burning urination. Patient reports symptoms has been going on for three weeks. Patient denies any fevers, nausea or vomiting, diarrhea. Reports occasional constipation. Patient reported that she was taking antibiotics for the urinary tract infection but I reviewed her medications and she was not taking any antibiotics and she was taking azo. Patient educated that azo it is only to treat symptoms and not an antibiotic. CBC showed no leukocytosis, mild normocytic anemia, chemistry showed GFR of 64, no other electrolyte imbalance, urinalysis positive for nitrites, CT abdomen and pelvis showed constipation, diverticulosis without diverticulitis, stable right adrenal nodule lesion. Patient at this time reports she feels better and she would like to go home because she needs to take care of her special needs child. On physical exam patient is in no acute distress, nontoxic appearance, stable vital signs. Abdomen is nontender to palpation. Patient will be discharged on antibiotics and instructed to follow up on urine culture. Differential diagnosis: UTI, bowel obstruction, appendicitis Need for hospitalization: Patient does not meet criteria for hospitalization. There are no social concerns with this patient. DX & DISP Disposition: Discharge Departure Impression: Primary Impression: UTI (urinary tract infection) Additional Impressions: Constipation, Suprapubic pain Condition: Stable Scripts Lactulose (Lactulose) 10 Gram/15 Ml Solution 30 ML PO DAILY for constipation, #500 ML 0 Refills Prov: FLORECITA GUZMÁN DIRECTOR MORTGAGE 12/04/24 Nitrofurantoin/Nitrofuran Mac (Macrobid) 100 Mg Cap 1 CAP PO BID for 5 Days, #10 CAP 0 Refills Prov: FLORECITA GUZMÁN DIRECTOR MORTGAGE 12/04/24 Additional Instructions: Idalia laboratorios ensenan que tiene juan infeccion del kaylen. Lo que usted estava tomando no demar antibioticos.Le mande antibioticos asu farmacia. Visite scott doctor de cavezera en 1-2 deutsch. Traer idalia antibioticos miguel se lo he recetado. Si algo empiora, regrese al hospital. Scott tomografia tambien ensena extrenimiento. Le recetare algo que puede wilberto. FOLLOW-UP WITH PRIMARY CARE PROVIDER IN 1 TO 2 DAYS. TAKE MEDICATIONS DIRECTED HERE IN THE EMERGENCY ROOM. OKAY TO CONTINUE HOME MEDICATIONS UNLESS OTHERWISE DISCUSSED DURING YOUR VISIT IN THE EMERGENCY ROOM TODAY. RETURN TO YOUR NEAREST EMERGENCY ROOM IF SYMPTOMS WORSEN OR IF THERE IS NO IMPROVEMENT. CALL 911 IF YOU NEED IMMEDIATE ASSISTANCE. TAKE TYLENOL [id number] NEEDED AND IF NO CONTRAINDICATIONS ARE PRESENT. INCREASE ORAL HYDRATION. A WOUND CULTURE OR URINE CULTURE WAS ORDERED HERE IN THE EMERGENCY ROOM DEPARTMENT PLEASE FOLLOW-UP WITH PRIMARY CARE PROVIDER AND ADVISE THEM TO GET REPEAT PORTS FROM OUR FACILITY. IF YOU HAD ANY RICKY WRAP/SPLINTS THAT WERE APPLIED HERE, PLEASE DO NOT REMOVE THEM UNTIL YOU SEE YOUR PRIMARY CARE OR SPECIALTY. Referrals: SELF,REFERRAL (PCP) Time of Disposition: 22:43 I have reviewed the case, and I agree with, Diagnosis and Plan VINH MATTHEWS NP Dec 04, 2024 20:09 GUZMÁNFLORECITA Dec 04, 2024 22:44
[2024-12-04 20:38] LABS: IMMATURE GRANULOCYTE ABSOLUTE 0.02 K/uL (0-1); NUCLEATED RED BLOOD CELLS 0.0 % (0.0-0.19); PLATELET COUNT (AUTO) 287 K/uL (130-400); RED BLOOD CELL COUNT(AUTO) 3.62 MIL/uL (4.00-5.50); RED CELL DISTRIBUTION WIDTH 13.5 % (11.0-15.5); WHITE BLOOD COUNT (AUTO) 5.0 K/uL (4.8-10.8)
[2024-12-04 20:40] LABS: APPEARANCE,URINE CLOUDY (CLEAR); GLUCOSE, URINE (UA) NEGATIVE (NEGATIVE); LEUKOCYTE ESTERASE ,URINE NEGATIVE Leu/uL (NEGATIVE); NITRATE,URINE 1+ (NEGATIVE); OCCULT BLOOD,URINE MODERATE (NEGATIVE)
[2024-12-04 20:41] LABS: ADD UA MICROSCOPIC YES
[2024-12-04 20:43] LABS: OTHER CASTS, URINE 1 /LPF (None Seen); SQUAMOUS EPITHELIAL CELL,UR FEW /HPF (0-2)
[2024-12-04 20:46] LABS: CREATININE 0.9 mg/dL (0.5-1.0); GLOMERULAR FILTR. RATE CALC 64.0 mL/min (>90); GLUCOSE,RANDOM 112.0 mg/dL (70-105); SODIUM SERUM 138.0 mmol/L (136-145); UREA NITROGEN, BLOOD 30.0 mg/dL (7-18)
[2024-12-04 20:53] VITALS: BP 156/48; PULSE 60; RESP 17; TEMP 98.5; O2SAT 99
[2024-12-04] MEDS: 0.9%NACL 1000ML 1,000 ML IV SCH (20:53)
--- NOTE | 2024-12-04 22:20 | HMCIMG ---
EXAM: CT Abdomen and Pelvis Without IV contrast. CLINICAL HISTORY: Diffuse pelvic and suprapubic pain. Hematuria. TECHNIQUE: Axial computed tomography images of the abdomen and pelvis without intravenous contrast. CONTRAST: No IV contrast. COMPARISON: CT dated May 20, 2023. FINDINGS: LUNG BASES: Mild bibasilar atelectasis. The rest of the lung bases appear clear. No pleural effusions are seen. Mild cardiomegaly. Mild pericardial effusion. Coronary artery calcifications. Cardiac pacemaker lead tip in the right ventricle. LIVER: A few small calcified granulomas are scattered in the liver. GALLBLADDER AND BILE DUCTS: The gallbladder is surgically absent. No biliary ductal dilatation is evident. PANCREAS: Unremarkable. SPLEEN: Unremarkable. ADRENAL GLANDS: 3.5 x 2.5 cm hypodense lesion in the right adrenal gland with a small hyperdense component. KIDNEYS, URETERS, AND BLADDER: The kidneys appear within normal limits. There is no hydronephrosis or hydroureter. No urinary calculi are seen. The urinary bladder is partially distended with questionable wall thickening. STOMACH AND BOWEL: Colonic diverticulosis without diverticulitis. Unremarkable appearance of the stomach and the rest of the bowel. No evidence of bowel obstruction. No evidence suggesting enteritis or colitis. A moderate amount of fecal matter in the large bowel may represent a component of constipation. A small and uncomplicated umbilical hernia with fat as content, defect size measuring up to 2.5 cm. APPENDIX: No evidence of acute appendicitis on CT examination. PERITONEUM: No free fluid. No free air. LYMPH NODES: No lymphadenopathy is evident. REPRODUCTIVE: Unremarkable as visualized. VASCULATURE: Atherosclerotic wall calcifications in the abdominal aorta. No evidence of abdominal aortic aneurysm. BONES: Moderate multilevel degenerative changes in the spine. No aggressively appearing osseous lesion. No acute osseous pathology evident. IMPRESSION: No acute abnormality in the abdomen or pelvis. Stable right adrenal nodular lesion, may represent an adenoma. Colonic diverticulosis without diverticulitis. No significant interval change /[place]
[2024-12-04] MEDS ORDERED: MACR100 PO (22:44)
[2024-12-04] MEDS ORDERED: LACT-441 PO (22:44)
[2024-12-04] MEDS: NITROFURANTOIN MONOHYD/M-CRYST 100 MG CAPSULE PO ONE (22:48)
== END 2024-12-04 22:54 | disposition home or self-care (01) ==
LOC: EDH 19:46
DX: N39.0 Urinary tract infection, site not specified (principal); K59.00 Constipation, unspecified; I10 Essential (primary) hypertension; Z79.01 Long term (current) use of anticoagulants; Z79.82 Long term (current) use of aspirin; Z79.899 Other long term (current) drug therapy; Z88.0 Allergy status to penicillin; Z88.3 Allergy status to other anti-infective agents; Z88.5 Allergy status to narcotic agent; Z88.7 Allergy status to serum and vaccine; Z90.49 Acquired absence of other specified parts of digestive tract; Z95.810 Presence of automatic (implantable) cardiac defibrillator
CPT/HCPCS: 99284; 74176; 80048; 83690; 85025; 87086; 81001; 36415; J7030